=== PATIENT | male | born 1955 | race Caucasian/White ===

== ENCOUNTER → 2018-08-31 09:56 | Outpatient (CLI) | payer BC, SELFPAY ==
--- NOTE | 2018-08-31 10:01 | XR_ITS ---
EXAM: XR lumbar spine min 4V HISTORY: ITS.REASON: LUMBAGO WITH RT SCIATICA ORDERING PHYSICIAN: Jason Cornejo MD PATIENT AGE: 62 years COMPARISON: None FINDINGS: Mild lumbar scoliosis convex left. There is degenerative disc disease at L4-L5 and L5-S1 and to lesser. L3-L4. There are small anterior osteophytes. There is mild wedging of T 12 and L1 which appears chronic. No acute fracture or dislocation. Bilateral renal calculi suspected stones measuring up to 4 mm in the upper pole on the right and 2 mm in the upper pole of the left. IMPRESSION: 1. Mild scoliosis with degenerative disc disease. 2. Bilateral nephrolithiasis
== END ==
PROVIDERS: PCP Family Medicine; Visit Provider Family Medicine
DX: M54.41 Lumbago with sciatica, right side (principal)
CPT/HCPCS: 72110

== ENCOUNTER → 2019-02-26 07:46 | Outpatient (CLI) | payer BC, SELFPAY ==
--- NOTE | 2019-02-26 07:50 | NM_ITS ---
CARDIOLITE SPECT MYOCARDIAL PERFUSION LEXISCAN, REST AND STRESS: History: Hypertension, hyperlipidemia, shortness of breath, family history. Procedure: Patient exercised on Michael protocol 8 minutes, resting heart rate was 71 bpm resting blood pressure 128/82, with exercise maximum heart rate achieved was 1 48 bpm which is greater than 85% of the maximum predicted heart rate and a blood pressure was 160/90 test was started shortness of breath and fatigue patient denied any complained of chest pain. Patient has good exercise capacity achieved 10.1mets of workload on treadmill, the blood pressure response to exercise was adequate. Electrocardiogram: Resting electrocardiogram showed sinus rhythm, report changes, with exercise occasional premature ventricular complex seen, 1.[address] segment depression noted from the baseline EKG. The EKG portion of the exercise Myoview is negative for ischemia. Cardiac stress and resting SPECT images: Cardiac stress and resting SPECT images were obtained using technetium 99 Myoview 32.2 mCi stress and 10.7 mCi at rest. Gated SPECT further analysis of segmental wall motion and calculation of the ejection fraction also done. Cardiac stress and the suspect show mild fixed defect inferolaterally with normal contractility gated SPECT is likely secondary to soft tissue attenuation, no reversible ischemia seen, computer derived ejection fraction 55% with no regional wall motion abnormality, right ventricle is normal size and contractility. Conclusion: 1. The EKG portion of the exercise Myoview is negative for ischemia, patient has good exercise capacity achieved 10.1mets of workload on treadmill, the blood pressure response to exercise was adequate, there was no exercise-induced chest discomfort. 2. Scintigraphic evidence of reversible ischemia seen at this level of exercise, computer derived ejection fraction is 55% with no regional wall motion abnormality, right ventricle is normal size and contractility. 3. Normal exercise Myoview study.
--- NOTE | 2019-02-26 08:01 | HMH.ITSHM ---
Current Home Medications as stated by this patient Alex Carver or accounts payable representative. []TRAZADONE TAMSULOSIN LISINOPRIL FINASTERIDE PRAVASTATIN MELOXICAM
== END ==
PROVIDERS: PCP Family Medicine; Visit Provider Family Medicine
DX: R06.09 Other forms of dyspnea (principal); I10 Essential (primary) hypertension; E78.5 Hyperlipidemia, unspecified; Z82.49 Family history of ischemic heart disease and other diseases of the circulatory system
CPT/HCPCS: 78452; 93017; A9502

== ENCOUNTER → 2019-09-24 15:57 | Outpatient (CLI) | payer BC, SELFPAY ==
--- NOTE | 2019-09-24 16:02 | XR_ITS ---
PROCEDURE: XR CERVICAL SPINE 5V CLINICAL INDICATION: DISORDER OF NECK,CERVICAL RADICULOPATHY Right-sided neck pain COMPARISON: No exams were available for comparison FINDINGS: Degenerative disc disease C5-C6 and C6-C7. There is some minimal foraminal narrowing on the right at C5-C6 and on the left at C4-C5 and C5-C6. No fracture or dislocation. No lytic or blastic change. Endplate osteophytes are present posteriorly at C5-C6. IMPRESSION: Degenerative changes as described above Dictated by: Dmitry Hannon MD 09/24/2019 16:26 Electronically signed by Dmitry Hannon MD in [place] 09/24/2019 16:26
== END ==
PROVIDERS: PCP Family Medicine; Visit Provider Family Medicine
DX: M53.82 Other specified dorsopathies, cervical region (principal); M54.12 Radiculopathy, cervical region
CPT/HCPCS: 72050

== ENCOUNTER → 2019-10-02 07:41 | Outpatient (CLI) | payer BC, SELFPAY ==
--- NOTE | 2019-10-02 07:44 | MR_ITS ---
PROCEDURE: MR CERVICAL SPINE WO CON CLINICAL INDICATION: DISORDER OF NECK, PAIN IN RIGHT ARM, CERVICAL RADICULOPATHY Right arm pain and numbness and tingling COMPARISON: XR CERVICAL SPINE 5V from 09/24/2019 TECHNIQUE: Standard multiplanar multiecho sequences are performed without contrast. 3-D MIP and myelographic images are also rendered and reviewed FINDINGS: There is normal alignment. Cranial cervical junction has an unremarkable appearance. C2-C3: Unremarkable. C3-C4: Mild degenerative disc disease with mild left-sided uncovertebral hypertrophy and mild foraminal narrowing. C4-C5: Minimal bulging disc. C5-C6: Degenerate disc disease with minimal retrolisthesis of C5 of 2 mm with bulging disc slightly eccentric toward the right with uncovertebral hypertrophy with bilateral foraminal narrowing. There narrowing of the cord at this level at 10 mm. There is mild impingement upon the anterior aspect of the cord with contour deformity. C6-C7: Degenerate disc disease with mild bulging disc with uncovertebral hypertrophy bilaterally slightly greater on the left and bilateral lateral recess and foraminal narrowing slightly greater on the left. C7-T1: Degenerative disc disease. T1-T2: Degenerative disc disease. IMPRESSION: 1. Multilevel cervical spondylosis. Please see above for detailed description at each level. 2. C5-C6: Degenerate disc disease with minimal retrolisthesis of C5 of 2 mm with bulging disc slightly eccentric toward the right with uncovertebral hypertrophy with bilateral foraminal narrowing. There is narrowing of the cord at this level at 10 mm. There is mild impingement upon the anterior aspect of the cord with contour deformity. 3. C6-C7: Degenerate disc disease with mild bulging disc with uncovertebral hypertrophy bilaterally slightly greater on the left and bilateral lateral recess and foraminal narrowing slightly greater on the left. 4. No extruded herniated disc evident Dictated by: Dmitry Hannon MD 10/03/2019 17:42 Electronically signed by Dmitry Hannon MD in [place] 10/03/2019 17:42
== END ==
PROVIDERS: PCP Family Medicine; Visit Provider Family Medicine
DX: M53.82 Other specified dorsopathies, cervical region (principal); M79.601 Pain in right arm; M54.12 Radiculopathy, cervical region
CPT/HCPCS: 72141; 76376

== ENCOUNTER 2019-11-14 08:00 | Outpatient (RCR) | payer BC, SELFPAY | END 2019-11-14 08:05 | disposition home or self-care (01) | LOC: PT 08:00 | PROVIDERS: PCP Family Medicine; Visit Provider Neurological Surgery | DX: M54.2 Cervicalgia (principal) | CPT/HCPCS: 20560; 97010; 97012; 97014; 97035; 97110; 97163; 97535; G0283 ==

== ENCOUNTER → 2021-03-29 15:09 | Outpatient (CLI) | payer BC, SELFPAY ==
[2021-03-29 15:15] VITALS: PULSE 73; PULSE 76
== END ==
PROVIDERS: PCP Family Medicine; Visit Provider Family Medicine
DX: R06.02 Shortness of breath (principal)
CPT/HCPCS: 94060; 94640

== ENCOUNTER → 2021-07-21 12:29 | Outpatient (CLI) | payer BC, SELFPAY | PROVIDERS: PCP Family Medicine; Visit Provider Family Medicine | DX: G47.33 Obstructive sleep apnea (adult) (pediatric) (principal); R06.81 Apnea, not elsewhere classified; R06.83 Snoring | CPT/HCPCS: G0399 ==

== ENCOUNTER 2022-08-18 10:31 | Emergency (ER) | payer BC, SELFPAY ==
[2022-08-18 11:40] VITALS: BP 131/87; PULSE 84; RESP 18; TEMP 36.7; O2SAT 98; BMI 26.2
[2022-08-18 11:57] LABS: UTC Influenza A Antigen Negative (Negative); UTC Strep Screen (Rapid) Negative (Negative)
[2022-08-18 11:58] LABS: UTC Influenza B Antigen Negative (Negative)
--- NOTE | 2022-08-18 12:10 | EXP.UTC ---
Discharge Plan Disposition Patient Disposition: Home, Self-Care Condition: Good Prescriptions Prescriptions: No Action finasteride 5 mg tablet 5 mg PO .Q DAY tamsulosin 0.4 mg capsule,extended release 24hr 0.4 mg PO Q24H pravastatin 40 mg tablet 40 mg PO QHS trazodone 100 mg tablet 100 mg PO QHS lisinopril-hydrochlorothiazide 20-12.5 mg tablet See Rx Instructions PO DAILY Rx Instructions: half tab PO daily; celecoxib 200 mg capsule 200 mg PO DAILY omeprazole 20 mg capsule,delayed release(DR/EC) 20 mg PO DAILY Spiriva with HandiHaler 18 mcg capsule, w/inhalation device 1 cap INHALATION DAILY Referrals Follow up/Referrals: Jason Corenjo MD [Primary Care Provider] - See instructions Activity Restrictions/Add. Instructions Additional Instructions/Restrictions: *Monitor Temp, Over the counter Motrin or Tylenol as directed/as needed Tylenol every 4 hours and Motrin every 6 hours (as long as your family doctor has told you that you can take it) for fever or pain. and straight to ER if unable to lower temp less than 101.0 after medication given *Warm salt water gargles may help to soothe the throat *Throat Lozenges? *Warm fluids like tea with honey may help to soothe the throat? *Sleep elevated *Humidifier/Vaporizer Your throat swab was sent for culture. Those results are typically sent to your primary care. Be sure to follow up in 2-3 days with your family doctor/primary care physician if no improvement so they can review those result and treat if necessary. If you don?t have a primary care doctor, I recommend you get one but in the mean time, you will have to return to a walk in clinic Follow up IMMEDIATELY for new or worsening symptoms or no Noticeable improvement over the next 48-72 hours. 911 for difficulty breathing or swallowing You can check your COVID results on the [facility] My Health Portal later today for results Clinical Impressions Clinical Impression: Viral upper respiratory infection Instructions Patient Instructions: Sore Throat, DI for Nasal Congestion Discharge ED Provider: More Slaughter [facility] HPI General Stated complaint: Scratchy throat, strep/flu test Mode of Arrival: Ambulatory Source of Information: Patient Limitations: No Limitations Time Seen by Provider: 08/18/22 12:10 Description of Symptoms (Recalled from Triage Doc. by RN): PATIENT C/O SCRATCHY THROAT AND HEADACHE SINCE YESTERDAY. HE REPORTS HE IS SUPPOSED TO HAVE OPEN HEART SURGERY TOMORROW AND NEEDS CHECKED FOR STREP AND FLU HEENT Symptoms (Recalled from RN notes): Yes Resp Symptoms (Recalled from RN notes): No Skin Symptoms (Recalled from RN notes): No MS Symptoms (Recalled from RN notes): No Functional Status (Recalled from RN notes): WNL History of Present Illness Provider Complaint: Patient states that he is suppose to have Open Heart Surgery Tomorrow and started having sinus congestion and sore scratchy throat and headache States that they wanted him to get checked for flu and strep throat Denies known fever Related Data Home Medications Medication Instructions Recorded Confirmed finasteride 5 mg tablet 5 mg PO .Q DAY 09/21/17 08/18/21 pravastatin 40 mg tablet 40 mg PO QHS 09/21/17 08/18/21 tamsulosin 0.4 mg capsule 0.4 mg PO Q24H 09/21/17 08/18/21 celecoxib 200 mg capsule 200 mg PO DAILY 08/18/21 08/18/21 lisinopril 20 See Rx Instructions PO DAILY 08/18/21 08/18/21 mg-hydrochlorothiazide 12.5 mg tablet omeprazole 20 mg capsule,delayed 20 mg PO DAILY 08/18/21 08/18/21 release tiotropium bromide 18 mcg capsule 1 cap inhalation DAILY 08/18/21 08/18/21 with inhalation device (Spiriva with HandiHaler) trazodone 100 mg tablet 100 mg PO QHS 08/18/21 08/18/21 Allergies Allergy/AdvReac Type Severity Reaction Status Date / Time No Known Allergies Allergy Verified 08/18/21 08:32 Worker's Comp Is this a Worker's Comp case?: No
[2022-08-18 12:19] VITALS: BP 131/87; PULSE 84; RESP 18; TEMP 36.7; O2SAT 98
[2022-08-18 12:41] LABS: Coronavirus 19, PCR Not Detected (NotDetected); Influenza B, PCR Not Detected (NotDetected)
[2022-08-18 13:03] LABS: Influenza A, PCR Detected (NotDetected)
== END 2022-08-18 12:21 | disposition home or self-care (01) ==
PROVIDERS: Emergency Provider Nurse Practitioner; PCP Family Medicine
DX: J10.1 Influenza due to other identified influenza virus with other respiratory manifestations (principal)
CPT/HCPCS: 87804; 87880; 99212; C9803; G0463; U0003; U0005

== ENCOUNTER 2022-11-03 09:56 | Outpatient (RCR) | payer MEDICARE, BC, SELFPAY | END 2022-12-30 14:01 | disposition home or self-care (01) | LOC: PT 09:56 | DX: I25.10 Atherosclerotic heart disease of native coronary artery without angina pectoris (principal); Z95.1 Presence of aortocoronary bypass graft | CPT/HCPCS: 93798 ==

== ENCOUNTER 2023-11-30 11:06 | Outpatient (CLI) | payer MEDICARE, BC, SELFPAY ==
--- NOTE | 2023-11-30 11:11 | XR_ITS ---
FINAL REPORT CLINICAL HISTORY: LT KNEE PAIN; UNSPECIFIED CHRONICITY FINDINGS: Left knee Three views were obtained. There is no acute fracture or dislocation. Minimal degenerative changes are present. There is postoperative change in the medial lower leg. IMPRESSION: Degenerative and postoperative changes as above. Reviewed, Interpreted and Dictated by Erick Werner III, MD Transcribed by Elizabeth Manuel Authenticated and [facility]
== END 2023-11-30 23:59 ==
LOC: RAD 11:07
PROVIDERS: PCP Family Medicine; Visit Provider Family Medicine
DX: M25.562 Pain in left knee (principal)
CPT/HCPCS: 73562

== ENCOUNTER 2024-09-20 09:00 | Outpatient (RCR) | payer MEDICARE, BC, SELFPAY ==
--- NOTE | 2024-08-28 10:18 | HMH.PTOPEV ---
PT Outpatient Evaluation Rehab PT Outpatient Evaluation Start: 08/28/24 08:56 Freq: Status: Active Protocol: Document 08/28/24 08:56 LAURIE (Rec: 08/28/24 10:18 LAURIE [id number]) E-signed By Christiane Harding, PT Outpatient Therapy Subjective History Subjective History Pt is a 68 y/o male who reports chronic L knee pain that has gradually worsened over the past 4-5 months. Pt reports pain is located over the medial aspect of the knee. Pt reports pain is aggravated by prolonged standing/walking and twisting. 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 Pt had a L knee radiograph on 11/30/23 with impression of Degenerative and postoperative changes as above. Pt denies instability, clicking, catching, locking or popping of the knee. Pt reports his main concern is difficulty straightening his L knee. Pt states he has been taking prescribed Meloxicam for awhile which he states assists with pain. Pt reports the L leg has been chronically swollen and numb since having bypass surgery in 2021. Pt reports continued high blood pressure and states he has an appointment with his clinical systems educator today to discuss this. Medical History: Hypertension Observation: slight varus deformity noted New diagnosis of cancer in past 12 No months? Chief Complaint Pain,Swelling Symptom Type Ache,Stabbing Symptoms Relieved By Rest/Positioning,Prescription Meds Symptoms Aggravated By Standing,Physical Activity, Twisting,Walking Current Functional Limitations Lifting,Squatting,Recreation Activity,Walking Symptom Description Constant but Variable Level of pain today (0-10) 2 Pain scale - at its best (0-10) 1 Pain scale - at its worst (0-10) 8 Hip/Knee Eval Gait Observation General Gait Pattern Observation Antalgic Gait Assistive Device Assistive Devices None / NA Palpation Tenderness left Knee Palpation Finding Tenderness Knee Palpation Overall Comment medial joint line, medial femoral condyle 2/4 TTP MMT Hip Flexion Strength Grade 4 Good Hip Abduction Strength Grade 4 Good Hip Adduction Strength Grade 4 Good Hip Extension Strength Grade 4 Good Knee Extension Strength Grade 4 Good Knee Flexion Strength Grade 5 Normal ROM Knee Extension Active Range of Motion ( 5 degrees) Knee Extension Passive Range of Motion ( 2 degrees) Knee Flexion Active Range of Motion ( 130 degrees) Effusion joint effusion knee exam standard left Mid - Patellar Circumerential Measure ( 39 cm) Special Tests Knee Anterior Venkata Test Negative Left Knee Valgus Stress Test Negative Left Knee Varus Stress Test Negative Left Knee Peggy Test Negative Left Lower Extremity Functional Index Activities Today, do you or would you have any difficulty at all with: a.Any of your usual work, housework or A little bit of difficulty school activities b. Your usual hobbies, recreational or A little bit of difficulty sporting activities c. Getting into or out of the bath No difficulty d. Walking between rooms No difficulty e. Putting on your shoes or socks No difficulty f. Squatting A little bit of difficulty g. Lifting an object, like a bag of No difficulty groceries from the floor h. Performing light activities around No difficulty your home i. Performing heavy activities around A little bit of difficulty your home j. Getting into or out of a car No difficulty k. Walking 2 blocks No difficulty l. Walking a mile A little bit of difficulty m. Going up or down 10 stairs (about 1 No difficulty flight of stairs) n. Standing for 1 hour A little bit of difficulty o. Sitting for 1 hour No difficulty p. Running on even ground Moderate difficulty q. Running on uneven ground Moderate difficulty r. Making sharp turns while running fast Moderate difficulty s. Hopping Moderate difficulty t. Rolling over in bed No difficulty LEFI Score Lower Extremity Functional Index Score 66 Outpatient Therapy Assessment Impairments Problems/Impairmments Palpation Tenderness,Impaired Range of Motion,Impaired Strength,Impaired Walking, Impaired Standing,Impaired Lifting,Impaired Stair Climbing,Impaired Incline Stepping,Impaired Stepping on Uneven Surface,Impaired Squatting,Impaired Recreational Activities, Impaired Work Activities, Increased Edema,Lymphedema Present,Subjective C/O Pain, Impaired Self Care/Self Management Prognosis Rehab Potential Good Clinical Impression Consistent with Diagnosis Yes Short Term Goals Number of Weeks 3 Decrease Subjective C/O Pain Yes: Improve pain at worst to 6/10 to improve overall QOL Improve Self Care/Self Management Yes Patient to be Ind w/ HEP Yes Retirement Goals Number of Weeks 6 Increase Range of Motion Yes: Improve L knee extension AROM to 0 Increase Strength Yes: Improve LLE MMT to 4+-5/5 grossly to assist with function Improve Tolerance to Work Activities Yes: report ability to perform work duties at car shop with pain 4/10 or less Improve LEFI Score Yes: Improve score to 71/80 to improve overall QOL Decrease Subjective C/O Pain Yes: Improve pain at worst to 4/10 to improve overall QOL Outpatient Therapy Plan of Care Treatment Plan May Include Therapeutic Exercise Including Home Yes Exercise Program Manual Therapy Techniques Yes Neuromuscular Re-education Yes Therapeutic Activities to Return to Yes Previous Functional/Work Level Gait Training Yes ADL/Self Care Education Yes Dry Needling Yes Thermal Modalities Yes Electrical Stimulation Yes Ultrasound/Phonophoresis Yes Iontophoresis Yes Orthotics/Bracing/Splinting Yes Vasopneumatic Compression Pump Yes Massage Yes Manual Lymphatic Drainage Yes Eval/Re-Eval Yes Frequency Times per week 2 Duration Number of Weeks 4-6 Addendums This patient is a candidate for social No or vocational rehab? Patient/Guardian verbally acknowledges Yes understanding of treatment program and consents to further treatment? Patient/Guardian verbally acknowledges Yes understanding of diagnosis, prognosis and goals for treatment? Eval Complexity PT Charges 23695 - Low Complexity Shoulder/Elbow Eval Shoulder Objective Measurements Elbow Objective Measurements PHYSICIAN CERTIFICATION: I certify the specified therapy services for Alexbeto Carver are required, authorized, and reviewed every 30 days.
== END 2024-09-20 23:59 | disposition home or self-care (01) ==
LOC: PT 09:00
PROVIDERS: Visit Provider Physician Assistant Surgical
DX: M25.562 Pain in left knee (principal)
CPT/HCPCS: 97110; 97163; 97530

== ENCOUNTER 2024-09-25 08:54 | Outpatient (RCR) | payer MEDICARE, BC, SELFPAY ==
--- NOTE | 2024-09-25 09:42 | HMH.RHREAS ---
Rehab Reassessment Rehab OP Re-assessment Start: 09/25/24 08:58 Freq: Status: Active Protocol: Document 09/25/24 09:11 JAISONMARGARET (Rec: 09/25/24 09:42 LAURIE [id number]) E-signed By Christiane Harding PT Lower Extremity Functional Index Activities Today, do you or would you have any difficulty at all with: a.Any of your usual work, housework or No difficulty school activities b. Your usual hobbies, recreational or No difficulty sporting activities c. Getting into or out of the bath No difficulty d. Walking between rooms No difficulty e. Putting on your shoes or socks A little bit of difficulty f. Squatting A little bit of difficulty g. Lifting an object, like a bag of No difficulty groceries from the floor h. Performing light activities around No difficulty your home i. Performing heavy activities around A little bit of difficulty your home j. Getting into or out of a car No difficulty k. Walking 2 blocks No difficulty l. Walking a mile A little bit of difficulty m. Going up or down 10 stairs (about 1 No difficulty flight of stairs) n. Standing for 1 hour A little bit of difficulty o. Sitting for 1 hour No difficulty p. Running on even ground A little bit of difficulty q. Running on uneven ground A little bit of difficulty r. Making sharp turns while running fast A little bit of difficulty s. Hopping A little bit of difficulty t. Rolling over in bed No difficulty LEFI Score Lower Extremity Functional Index Score 71 Rehab Re-assessment Subjective Subjective Pt reports he has not experienced L knee pain recently but he continues to experience L knee tightness and difficulty straightening the L knee. Pt reports compliance with HEP and states he does feel that his knee has gotten a little looser overall. Objective Objective Notes L knee AROM: 0-3-130 LLE MMT: 4+/5 grossly LLE edema: 38.5 cm at tibiofemoral joint Assessment Progress Assessment Progressing as Expected Assessment Notes Pt has attended 6 PT treatment sessions consisting of aerobic exercise, L knee mobility with emphasis on extension, LE strengthening/ stretching, and HEP with good tolerance. Pt demonstrated improved LEFS score, LE MMT, and slight improvement in knee extension AROM. Overall, the pt met most PT goals and is appropriate to discharge to independent HEP. Pt encouraged to continue stretching and knee extension mobility exercises upon discharge. Patient goals met ST/ LT/5 Goals Not Met knee extension AROM Revised Goals n/a Plan Plan Discharge to [facility] Time and Billing Re-Eval Time 10 Re-Eval Billing Units 0 Charge for PT reassessment? No Charge for OT reassessment? No PHYSICIAN CERTIFICATION: I certify the specified therapy services for Alex Carver are required, authorized, and reviewed every 30 days.
== END 2024-09-25 23:59 | disposition home or self-care (01) ==
LOC: PT 08:54
PROVIDERS: Visit Provider Physician Assistant Surgical
DX: M25.562 Pain in left knee (principal)
CPT/HCPCS: 97110; 97530

== ENCOUNTER 2025-06-19 10:33 | Day surgery (SDC) | payer MEDICARE, BC, SELFPAY ==
[2025-06-13 15:34] VITALS: BMI 27.9
--- NOTE | 2025-06-18 07:20 | EXP.HP ---
History of Present Illness *Admission Date: 06/19/25 *History of present illness: Mr. Carver is a 69-year-old gentleman who is here for screening/surveillance colonoscopy. The patient does have a personal history of colon polyps and last colonoscopy was September 2013 (Jeremiah Bryson M.D.). The examination is deemed medically necessary for screening/surveillance colonoscopy. The patient has been seen, interviewed and examined prior to the procedure by both myself and the anesthesia provider. [facility] Disclaimer: The information contained in this section may have been updated after the patient was seen, as this information can be updated by other users. Medical History Left knee pain Overweight Prostate disorder Hyperlipidemia Hypertension Surgical History (Reviewed 06/19/25 @ 11: by Albania Lubin CRNA) History of cataract surgery History of heart bypass surgery H/O vasectomy Hx of cardiac cath Family History Mother Arthritis Other Coronary artery disease Heart attack Hypertension Social History Smoking Status: Never smoker alcohol intake: never substance use type: denies use current occupational status: retired Travel in the last 8 weeks?: Inside the [place] household members: spouse and children housing: house caffeine: Yes Have you lived/traveled outside US in past 30 days?: No Contact w/someone who lives/traveled outside US past 30 days?: No Exposure to someone with infectious disease in past 14 days?: No Do you have a fever (greater than 100.4 F or 38 C)?: No Have you tested positive for COVID-19?: No Exposed to someone with COVID-19 in past 14 days?: No Do you have a sore throat?: No Do you have a cough?: No Do you have any weakness?: No Are you experiencing any nausea/vomitting?: No Do you have any diarrhea?: No Are you experiencing any unusual bleeding?: No Do you have any muscle aches/pain?: No Do you have any abdominal pain?: No Are you experiencing loss of taste or smell?: No Other Medical History Have you received the Flu Vaccine for this season: No Have you received the Pneumonia Vaccine: No Review of Systems Review of Systems Review of systems (narrative): Negative *Cardiovascular Comments: Negative *Gastrointestinal Comments: Negative *Genitourinary Comments: Negative *Musculoskeletal Comments: Negative *Neurologic Comments: Negative Meds Home Medications and Allergies Home Medications ?Medication ?Instructions ?Recorded ?Confirmed ?Type finasteride 5 mg tablet 5 mg PO .Q DAY 09/21/17 06/19/25 History tamsulosin 0.4 mg capsule 0.4 mg PO Q24H 09/21/17 06/19/25 History omeprazole 20 mg capsule,delayed 20 mg PO DAILY 08/18/21 06/19/25 History release aspirin 81 mg chewable tablet 1 tab PO DAILY 12/08/22 06/19/25 History atorvastatin 40 mg tablet 40 mg PO DAILY 12/08/22 06/19/25 History furosemide 20 mg tablet 20 mg PO DAILY PRN . 02/01/23 06/19/25 History melatonin 10 mg chewable tablet 10 mg PO HS 07/27/23 06/19/25 History trazodone 50 mg tablet 100 mg PO HS 07/27/23 06/19/25 History metoprolol tartrate 37.5 mg tablet 37.5 mg PO BID 07/25/24 06/19/25 History amlodipine 5 mg tablet 5 mg PO DAILY 10/10/24 06/19/25 History irbesartan 150 1 tab PO HS 10/10/24 06/19/25 History mg-hydrochlorothiazide 12.5 mg tablet meloxicam 7.5 mg tablet 7.5 mg PO DAILY 10/10/24 06/19/25 History sodium,potassium,mag sulfates 17.5 See Rx Instructions PO .COMPLEX 06/05/25 06/19/25 Rx gram-3.13 gram-1.6 gram oral soln #354 mL (Suprep Bowel Prep Kit) New Prescriptions to Start Prescriptions: Allergies Allergy/AdvReac Type Severity Reaction Status Date / Time No Known Allergies Allergy Verified 06/19/25 10:49 Exam *Routine HEENT Exam Head: Present normocephalic Eye: Present EOMI and PERRL ENT: Present mucous membranes moist *Routine Neck Exam Neck: Present supple *Routine Respiratory Exam Respiratory: Present CTA bilaterally *Routine Cardiovascular Exam Cardiovascular: Present RRR *Routine Abdominal Exam Abdominal: Present soft and normoactive bowel sounds; Absent tenderness *Routine Rectal Exam Rectal:: deferred *Routine Genitalia Exam Genitalia:: deferred *Routine Extremities Exam Extremities: Absent cyanosis, clubbing or edema *Routine Skin Exam Skin: Present warm; Absent rash *Routine Neurological Exam Neurological: Present alert and oriented X3 Assessment and Plan *Assessment and plan (1) Personal history of colon polyps, unspecified: Status: Acute Category: Medical Code(s): Z86.0100 - Personal history of colon polyps, unspecified (2) Screening for colon cancer: Status: Acute Category: Medical Code(s): Z12.11 - Encounter for screening for malignant neoplasm of colon Plan A/P: 1. Personal history of colon polyps (unspecified) is the preprocedural diagnosis. Last colonoscopy was September 2013 (almost 12 years ago). The patient will be anesthetized/sedated using MAC sedation. The patient has been seen and examined. Cardiac and lung assessment prior to the examination is stable. Proceed with planned screening/surveillance colonoscopy.
--- NOTE | 2025-06-19 07:00 | HMH.PROCNOTE ---
[facility] Procedure Note Date: 06/19/25 Time: 12:20 Procedure Note:: Colonoscopy Procedure Report: Colonoscopy Endoscopist: Shashi Rodriguez II, MD Referring physician: Jason Cornejo MD Date of Procedure: June 19, 2025 Equipment: Olympus [id number] adult colonoscope Sedation: MAC sedation Indication: Mr. Carver is a 69-year-old gentleman who is here for screening/surveillance colonoscopy. The patient reports no abdominal pain, weight loss, change in his bowel habits or rectal bleeding. He does state that his maternal grandmother had colon cancer in her 90s. The patient does have a personal history of colon polyps and last colonoscopy was September 2013 (Jeremiah Bryson M.D.). The examination is deemed medically necessary for screening/surveillance colonoscopy. Procedure: Prior to the procedure, a history and physical exam was performed, and patient's medications and allergies were reviewed. The risks, benefits and alternatives of the sedation and procedure were discussed with the patient. All questions were answered and informed consent was obtained. The patient was brought to the procedure room. Patient identification and proposed procedure were verified by the physician and the nurse. The patient was placed in a left lateral decubitus position and the scope was passed under direct vision. Throughout the procedure, the patient's blood pressure, pulse, and oxygen saturations were monitored continuously. The colonoscopy was accomplished without difficulty. The patient tolerated the procedure well. Findings: On digital rectal examination there was normal rectal tone. There were no external hemorrhoids. The prostate was 2+, smooth, soft, symmetric without nodules. The colonoscope was introduced through the anal canal to the rectum and advanced to the cecum. The ileocecal valve and appendiceal orifice were identified. The scope was advanced a short distance into the ileum which appeared grossly normal. The scope was then withdrawn into the colon. The cecum, ascending and transverse colon and mucosa were grossly normal. There were scattered diverticuli throughout the descending and sigmoid colon (LEFT colon). The rectum itself was normal. Upon retroflexion within the rectum there were grade 1-2 internal hemorrhoids. The preparation was excellent throughout with [place] Preparation Score of 9. The cecal time was 11 minutes. Impression: 1. Left-sided diverticulosis 2. Grade 1-2 internal hemorrhoids Plan: The patient will not require screening/surveillance colonoscopy again for 10 years. I would encourage psyllium bulking fiber supplementation on a maintenance basis.
[2025-06-19 10:55] VITALS: BP 115/68; PULSE 70; RESP 16; TEMP 36.4; O2SAT 96
[2025-06-19] MEDS: LACTATED RINGERS 1000ML 1,000 ML 50 ML IV (11:05)
--- NOTE | 2025-06-19 11:31 | P.PNANES_ITS ---
[facility] Disclaimer: The information contained in this section may have been updated after the patient was seen, as this information can be updated by other users. Medical History Left knee pain Overweight Prostate disorder Hyperlipidemia Hypertension Surgical History History of cataract surgery History of heart bypass surgery H/O vasectomy Hx of cardiac cath Family History Mother Arthritis Other Coronary artery disease Heart attack Hypertension Social History Smoking Status: Never smoker alcohol intake: never substance use type: denies use current occupational status: retired Travel in the last 8 weeks?: Inside the [place] household members: spouse and children housing: house caffeine: Yes Have you lived/traveled outside US in past 30 days?: No Contact w/someone who lives/traveled outside US past 30 days?: No Exposure to someone with infectious disease in past 14 days?: No Do you have a fever (greater than 100.4 F or 38 C)?: No Have you tested positive for COVID-19?: No Exposed to someone with COVID-19 in past 14 days?: No Do you have a sore throat?: No Do you have a cough?: No Do you have any weakness?: No Are you experiencing any nausea/vomitting?: No Do you have any diarrhea?: No Are you experiencing any unusual bleeding?: No Do you have any muscle aches/pain?: No Do you have any abdominal pain?: No Are you experiencing loss of taste or smell?: No [facility] Anesthesia Checklist Patient Identification Patient Identification: Arm Band and Verbal (Name & ) Structural Data Admitted From: Home Planned Operative Procedure/s: COLONSCOPY Consent for Planned Operative Procedure(s) Verified: Yes Verified Documents: Surgical Consent and History and Physical NPO Status Verified Time NPO: 00:00 Additional verifications Anesthesia Reactions: No Previous Colonoscopy: Yes Airway Assessment Mallampati Score:: Class II C-Spine Mobility Assessed: No TMJ Mobility Assessed: No Dentition: Good Dentition Neurological Assessment Level of Consciousness: Awake, Alert and Appropriate Hx Seizures: No Numbness or tingling in extremities: No Anesthesia Plan Anesthesia Risk discussed: Yes Anesthesia Plan: Verified ASA Class: III Anesthesia Type: MAC
[2025-06-19 12:23] VITALS: BP 84/49; PULSE 63; RESP 14; TEMP 36.2; O2SAT 94
[2025-06-19 12:33] VITALS: BP 87/58; PULSE 66; RESP 16; O2SAT 95
[2025-06-19 12:43] VITALS: BP 103/64; PULSE 60; RESP 16; O2SAT 96
[2025-06-19 12:53] VITALS: BP 109/69; PULSE 61; RESP 16; O2SAT 96
== END 2025-06-19 13:02 | disposition home or self-care (01) ==
PROVIDERS: PCP Family Medicine; Visit Provider Internal Medicine Gastroenterology
PROC: 0DJD8ZZ Inspection of Lower Intestinal Tract, Via Natural or Artificial Opening Endoscopic (ICD-10-PCS; CPT 45378; principal; 2025-06-19 12:00)
DX: Z12.11 Encounter for screening for malignant neoplasm of colon (principal); K57.30 Diverticulosis of large intestine without perforation or abscess without bleeding; K64.0 First degree hemorrhoids; K64.1 Second degree hemorrhoids; I10 Essential (primary) hypertension; E78.5 Hyperlipidemia, unspecified; Z79.82 Long term (current) use of aspirin; Z86.0100 Personal history of colon polyps, unspecified
CPT/HCPCS: 45378; J2003; J2704; J7120

== ENCOUNTER 2025-08-08 08:38 | Outpatient (CLI) | payer MEDICARE, BC, SELFPAY ==
--- OUTSIDE RECORDS SUMMARY | 2024-04-12 04:15 | XMS_ITS ---
Author Organization [facility] Address [address] [facility] [address] [place], [place] [id number] Care Team Providers Care Chicken Stuffer Name Role Phone Jason Cornejo Primary Care Provider Allergies No Known Allergies Results Component Value Reference Range Notes P-Comprehensive Metabolic Pa cecille (CMP) Reviewed date:04/15/2024 12:03:14 PM Interpretation:satisfactory Performing Lab: Notes/Report: Test performed by [facility] , [address], [place] [address] Venkat Jose MD, Chinchilla Farmer CLIA: [id number] Sodium 138 135-145 mmol/L Potassium 4.9 3.5-5.3 mmol/L Chloride 101 97-108 mmol/L CO2 27 22-32 mmol/L Glucose 102 65-99 mg/dL BUN 22 8-23 mg/dL Creatinine 1.08 0.70-1.30 mg/dL Calcium 9.1 8.6-10.4 mg/dL eGFR by Creatinine 75 >59 mL/min/1.73m2 Protein 6.3 6.0-8.3 g/dL Albumin 4.3 3.5-5.3 g/dL Alkaline Phosphatase 65 40-129 IU/L ALT (SGPT) 24 <5-55 IU/L AST (SGOT) 26 <5-46 IU/L Bilirubin, Total 0.9 <0.2-1.2 mg/dL A/G Ratio 2.1 1.1-2.5 P-Lipid Panel Reviewed date:04/15/2024 12:03:14 PM Interpretation:Normal Performing Lab: Notes/Report: Test performed by [facility] [address] [place] [address] Venkat Jose MD, Chinchilla Farmer CLIA: [id number] Cholesterol 151 <200 mg/dL Triglycerides 52 <150 mg/dL HDL Cholesterol 75 >39 mg/dL Cholesterol / HDL Ratio 2.01 0.00-4.99 Ratio Non-HDL Cholesterol 76 <130 mg/dL LDL Cholesterol (Calculation) 66 <130 mg/dL LDL Cholesterol Levels* Less than 100 mg/dL Optimal 100 to 129 mg/dL Near Optimal/ Above Optimal 130 to 159 mg/dL Borderline High 160 to 189 mg/dL High 190 mg/dL and above Very High * Categories as recommended by the 2004 ATPIII guidelines LDL/HDL Ratio 0.9 <3.3 Ratio LDL Cholesterol Patient History Test Date: 04/12/2024 LDL Results: 66 Units: mg/dL % Change: - P-PSA Reviewed date:04/15/2024 12:03:14 PM Interpretation:Normal Performing Lab: Notes/Report: Test performed by [facility] [address] [place], [place] [address] Venkat Jose MD, Chinchilla Farmer CLIA: [id number] PSA 0.43 <4.00 ng/mL Please note this is an ultrasensitive PSA assay with a lower limit of detection of 0.014 ng/mL. This test is performed by the [employer] ECLIA methodology. Values obtained with different assay methods or kits cannot be directly compared. P-TSH reflex to FT4 Reviewed date:04/15/2024 12:03:14 PM Interpretation:Normal Performing Lab: Notes/Report: Test performed by [facility] [address] [place] [address] , [address], [place] [address] Venkat Jose MD, Chinchilla Farmer CLIA: [id number] TSH reflex to FT4 1.11 0.43-5.25 mU/L P-Microalbumin/Creatinine, R andom Urine Sample Reviewed date:04/15/2024 12:03:14 PM Interpretation:Normal Performing Lab: Notes/Report: Test performed by [facility] [address] [place] [address] , [address], [place] [address] Venkat Jose MD, Chinchilla Farmer CLIA: [id number] Albumin/Creatinine Ratio, Urine 3 0-30 ug/mg Microalbumin, Urine, Random 0.5 Creatinine, Urine 182.3 REASON FOR VISIT 6 Month Check Up Medications Medication SIG (Take, Route, Frequency, Duration) Notes Start Date End Date Status Atorvastatin Calcium 40 MG 1 tablet Oral ly Once a day; Duration: 90 days Active Omeprazole 20 MG 1 cap(s) orally once a day; Duration: 90 days Active Meloxicam 7.5 MG 1 tablet Orally Once a day; Duration: 90 days Active Tamsulosin HCl 0.4 MG 1 cap(s) orally on ce a day; Duration: 90 days Active Metoprolol Tartrate 37.5 MG 1 tab(s) ora lly 2 times a day Active Aspirin 81 MG 1 tab(s) orally once a day Active Finasteride 5 MG 1 tablet Orally once daily; Duration: 90 days Active traZODone HCl 50 MG 3 tablets Orally Onc e a day at bedtime; Duration: 30 days Active Vital Signs Weight 182 lbs 04/12/2024 Blood pressure systolic 126 mm Hg 04/12/20 24 Blood pressure diastolic 80 mm Hg 024 Heart Rate 68 /min 04/12/2024 Height 69.25 in 04/12/2024 BMI 26.68 kg/m2 04/12/2024 Encounters Encounter Location Date Provider Diagnosis [facility] [address] [place] [id number] 04/12/2024 Jason Cornejo Essential hypertensi on I10 ; Hyperlipidemia, unspecified hyperlipidemia type E78.5 ; Gastroesophageal reflux disease, esophagitis presence not specified K21.9 ; Benign prostatic hyperplasia, presence of lower urinary tract symptoms unspecified, unspecified morphology N40.0 ; Coronary artery disease involving klamath coronary artery of klamath heart without angina pectoris I25.10 and Prostate cancer screening Z12.5 Assessments Encounter Date Diagnosis (ICD Code) Assessment Notes Treatment Notes Treatment Clinical Notes Section Notes 04/12/2024 Essential hypertension (ICD-10 - I10) 04/12/2024 Hyperlipidemia, unspecified hyperlipidemia type (ICD-10 - E78.5) 04/12/2024 Gastroesophageal reflux disease, esophagitis presence not specified (ICD-10 - K21.9) 04/12/2024 Benign prostatic hyperplasia, presence of lower urinary tract symptoms unspecified, unspecified morphology (ICD-10 - N40.0) 04/12/2024 Coronary artery disease involving klamath coronary artery of klamath heart without angina pectoris (ICD-10 - I25.10) 04/12/2024 Prostate cancer screening (ICD-10 - Z12.5) Plan Of Treatment Medication Medication Name Sig Start Date Stop Date Notes Atorvastatin Calcium 40 MG 1 tablet Oral ly Once a day; Duration: 90 days Omeprazole 20 MG 1 cap(s) orally once a day; Duration: 90 days Finasteride 5 MG 1 tablet Orally once daily; Duration: 90 days Next Appt Details Follow Up: 6 Months, Reason: Provider Name:Jason Chiang ry, 10/17/2025 09:00:00 AM, [address], [address], [place], [id number], Progress Notes * Vesna CARVER:1955 (69 yo M)Acc No.[id number]:04/12/2024 Progress Notes Patient: Alex SIM Provider: Keila Cornejo M.D. :1955 A ge:68 Y S ex:Male Date:04/12/2024 Address:[address] [place] [address], [id number] Subjective: * Chief Complaints: * 1 . 6 Month Check Up. * HPI: C ardiology: 68 year old male presents with c/o Blood Pressure Elevated P t here for 6 mo f/u on hypertension, states he is doing well and does not have any concerns. c/o Hyperlipidemia P t is fasting today. * ROS: D ERMATOLOGY: no R bronwyn. n o H jason. G ASTROENTEROLOGY: no N ausea. n o V omiting. U ROLOGY: no D ifficulty urinating. n o B lood in urine. * Medical History: C oronary Artery Disease, Dx 2022, Hypertension, Hyperlipidemia, Dyspepsia, Colon Polyps, BPH, Degenerative Disc Disease, Kdney Stones, Retinal detachment, left eye, 2017, Cardiolyte stress test normal February 2019. * Surgical History: C olonoscopy (polyps) 08/2008, EGD (normal) 06/2009, Colonoscopy (polyps) 09/2013, LT Cataract Removal 04/2018, Retina and Coronia tear repairs (multiple times) 07/2018, LT Eye Scleral Buckle 10/18/2018, Coronary Artery Bypass Graft x 5 Vessels 08/2022. * Hospitalization/Major Diagno stic Procedure: D enies Past Hospitalization. * Family History: F ather: alive, hypertension, heart disease, Parkinsons. M other: alive. P aternal Grand Father: , heart disease. P aternal Grand Mother: , Parkinsons. M aternal Grand Father: , cancer, bladder. M aternal Grand Mother: . 1 son(s) , 1 daughter(s) - healthy. . * Social History: C URRENT TOBACCO USE S moking Status: Patient does NOT smoke. H ome smoke detector use: yes. Marital Status: . Past smoking status: no. * Medications: T aking Atorvastatin Calcium 40 MG Tablet 1 tablet Orally Once a day , Taking Aspirin 81 MG Tablet Delayed Release 1 tab(s) orally once a day , Taking Omeprazole 20 MG Capsule Delayed Release 1 cap(s) orally once a day , Taking Metoprolol Tartrate 37.5 MG Tablet 1 tab(s) orally 2 times a day , Taking Finasteride 5 MG Tablet TAKE 1 TABLET BY MOUTH ONCE DAILY FOR 90 DAYS. , Taking traZODone HCl 50 MG Tablet 3 tablets Orally Once a day at bedtime , Taking Tamsulosin HCl 0.4 MG Capsule 1 cap(s) orally once a day , Taking Meloxicam 7.5 MG Tablet 1 tablet Orally Once a day , Discontinued Terbinafine HCl 250 MG Tablet TAKE 1 TABLET BY MOUTH DAILY. , Medication List reviewed and reconciled with the patient * Allergies: N .K.D.A. Objective: * Vitals: W t:182, Temp:97.8, BP:126/80, HR:68, Nurse:antonia, Ht: 69.25, BMI:26.68. * Examination: C ardiology: General Appearance: p leasant, NAD. H EENT: u nremarkable. C arotid upstroke: n ormal, no bruits. H eart sounds: R RR, normal S1, S2.?Lungs: c lear, no rales or wheezes. E xtremities: n o leg edema. P eripheral pulses: 2 plus bilateral. Assessment: * Assessment: 1. E ssential hypertension - I10 (Primary) 2 . H yperlipidemia, unspecified hyperlipidemia type - E78.5 3 . G astroesophageal reflux disease, esophagitis presence not specified - K21.9 4 . B enign prostatic hyperplasia, presence of lower urinary tract symptoms unspecified, unspecified morphology - N40.0 5 . C oronary artery disease involving klamath coronary artery of klamath heart without angina pectoris - I25.10? 6. P rostate cancer screening - Z12.5 Plan: * Treatment: Value Reference Range A /G Ratio 2.1 1.1-2.5 - * A lbumin 4.3 3.5-5.3 - g/dL * A lkaline Phosphatase 65 40-129 - IU/L * A LT (SGPT) 24 <5-55 - IU/L * A ST (SGOT) 26 <5-46 - IU/L * B ilirubin, Total 0.9 <0.2-1.2 - mg/dL * B UN 22 8-23 - mg/dL * C alcium 9.1 8.6-10.4 - mg/dL * C hloride 101 97-108 - mmol/L * C O2 27 22-32 - mmol/L * C reatinine 1.08 0.70-1.30 - mg/dL * G lucose 102 H 65-99 - mg/dL * P otassium 4.9 3.5-5.3 - mmol/L * S odium 138 135-145 - mmol/L * P rotein 6.3 6.0-8.3 - g/dL * e GFR by Creatinine 75 >59 - mL/min/1.73m2 * Mimi Garcia 04/15/2024 11:47:4 8 AM > LM for return call Huma Wick 04/15/2024 12:03:04 PM >Patient informed of normal results. ?LAB: P-Microalbumin/Creatinine, Random Urine Sample (Collection Date & Time - 04/12/2024 08:58 AM)?Normal* Value Reference Range A lbumin/Creatinine Ratio, Urine 3 0-30 - ug /mg * C reatinine, Urine 182.3 - mg/dL * M icroalbumin, Urine, Random 0.5 - mg/dL * Mimi Garcia 04/15/2024 11:47:4 8 AM > LM for return call Huma Wick 04/15/2024 12:03:04 PM >Patient informed of normal results. 2.?Hyperlipidemia, unspecified hyperlipidemia type? Refill Atorvastatin Calcium Tablet, 40 MG, 1 tablet, Orally, Once a day, 90 days, 90, Refills 1. ?LAB: P-Comprehensive Metabolic Panel (CMP) (Collection Date & Time - 04/12/2024 08:58 AM)?satisfactory* Value Reference Range A /G Ratio 2.1 1.1-2.5 - * A lbumin 4.3 3.5-5.3 - g/dL * A lkaline Phosphatase 65 40-129 - IU/L * A LT (SGPT) 24 <5-55 - IU/L * A ST (SGOT) 26 <5-46 - IU/L * B ilirubin, Total 0.9 <0.2-1.2 - mg/dL * B UN 22 8-23 - mg/dL * C alcium 9.1 8.6-10.4 - mg/dL * C hloride 101 97-108 - mmol/L * C O2 27 22-32 - mmol/L * C reatinine 1.08 0.70-1.30 - mg/dL * G lucose 102 H 65-99 - mg/dL * P otassium 4.9 3.5-5.3 - mmol/L * S odium 138 135-145 - mmol/L * P rotein 6.3 6.0-8.3 - g/dL * e GFR by Creatinine 75 >59 - mL/min/1.73m2 * Mimi Garcia 04/15/2024 11:47:4 8 AM > LM for return call [facility] 04/15/2024 12:03:04 PM >Patient informed of normal results. ?LAB: P-Lipid Panel (Collection Date & Time - 04/12/2024 08:58 AM)?Normal* Value Reference Range C holesterol / HDL Ratio 2.01 0.00-4.99 - Ratio * C holesterol 151 <200 - mg/dL * H DL Cholesterol 75 >39 - mg/dL * L DL Cholesterol (Calculation) 66 <130 - mg/d L * L DL/HDL Ratio 0.9 <3.3 - Ratio * N on-HDL Cholesterol 76 <130 - mg/dL * T riglycerides 52 <150 - mg/dL * Yulissa Garciaira 04/15/2024 11:47:4 8 AM > LM for return call [facility] 04/15/2024 12:03:04 PM >Patient informed of normal results. ?LAB: P-TSH reflex to FT4 (Collection Date & Time - 04/12/2024 08:58 AM)? Normal* Value Reference Range T SH reflex to FT4 1.11 0.43-5.25 - mU/L * Yulissa Garciaira 04/15/2024 11:47:4 8 AM > LM for return call [facility] 04/15/2024 12:03:04 PM >Patient informed of normal results. 3.?Gastroesophageal reflux disease, esophagitis presence not specified? Refill Omeprazole Capsule Delayed Release, 20 MG, 1 cap(s), orally, once a day, 90 days, 90, Refills 1.??4.?Benign prostatic hyperplasia, presence of lower urinary tract symptoms unspecified, unspecified morphology? Refill Finasteride Tablet, 5 MG, 1 tablet, Orally, once daily, 90 days, 90, Refills 1.??5.?Prostate cancer screening?LAB: P-PSA (Collection Date & Time - 04/12/2024 08:58 AM)?Normal* Value Reference Range P SA 0.43 <4.00 - ng/mL * Mimi Garcia 04/15/2024 11:47:4 8 AM > LM for return call Huma Wick 04/15/2024 12:03:04 PM >Patient informed of normal results. * Follow Up: 6 Months * Images: Billing Information: * Visit Code: [id number] Office Visit, Est Pt., Level 4. * Procedure Codes: * Electronic signature of Tess Cornejo MD on 08/08/2025 at 08:45 AM EST Sign off status: Pending * Provider: Keila Cornejo M.D. Date: 0 04/12/2024 Generated for Saige salas/Broderick/Patricia on: 1 10/09/2024 08:45 AM EST History and Physical Notes * HPI (History of Present Illness) Category Sub-Category Detail Notes Category Not es Cardiology Blood Pressure Elevated Pt here for 6 mo f/u on hypertension, states he is doing well and does not have any concerns Hyperlipidemia Pt is fasting today Examination Category Sub-Category Detail Notes Category Not es Cardiology Lungs: clear, no rales or wheezes HEENT: unremarkable Heart sounds: RRR, normal S1, S2 Carotid upstroke: normal, no bruits Extremities: no leg edema Peripheral pulses: 2 plus bilateral General Appearance: pleasant, NAD
--- OUTSIDE RECORDS SUMMARY | 2024-07-26 06:45 | XMS_ITS ---
[facility] [address] [id number] Care Team Providers Care Web Graphic Designer Name Role Phone Jason Cornejo Primary Care Provider [phone] Allergies No Known Allergies Reason For Referral Diagnosis 1 Arthritis of left kn ee (M17.12) Diagnosis 2 Pain in left knee (M 25.562) Referral Organization [facility] Referring Provider First Name Jason Referring Provider Last Name Clemente Referring Provider Speciality Family [facility] ctice Referred Provider Fco Alvarez Referred Provider Specialty Orthopedic S [facility] General Notes Priscila Landaverde 07/26/20 24 12:01:19 PM > faxed to Dr. Alvarez's office Referral Priority Routine REASON FOR VISIT HIGH B/p Medications Medication SIG (Take, Route, Frequency, Duration) Notes Start Date End Date Status Aspirin 81 MG 1 tab(s) orally once a day Active Irbesartan 150 MG 1 tablet Orally Once a day; Duration: 90 days 07/26/2024 Active Meloxicam 7.5 MG 1 tablet Orally Once a day; Duration: 90 days Active Tamsulosin HCl 0.4 MG 1 cap(s) orally on ce a day; Duration: 90 days Active Metoprolol Tartrate 37.5 MG 1 tab(s) ora lly 2 times a day Active Finasteride 5 MG 1 tablet Orally once daily; Duration: 90 days Active traZODone HCl 50 MG 3 tablets Orally Onc e a day at bedtime; Duration: 30 days Active Atorvastatin Calcium 40 MG 1 tablet Oral ly Once a day; Duration: 90 days Active Omeprazole 20 MG 1 cap(s) orally once a day; Duration: 90 days Active Problems Problem Type SNOMED Code ICD Code Onset Dates Problem Status W/U Status Risk Notes Problem Chronic pain (31047637) Other chronic pain (G89.29) Active confirmed Problem Arthritis of left knee (1452749011981 104) Arthritis of left knee (M17.12) Active confirmed Vital Signs Weight 189 lbs 07/26/2024 Blood pressure systolic 150 mm Hg 07/26/20 24 Blood pressure diastolic 90 mm Hg 024 Heart Rate 78 /min 07/26/2024 Height 69.25 in 07/26/2024 BMI 27.71 kg/m2 07/26/2024 Encounters Encounter Location Date Provider Diagnosis [facility] [address] [place], [place] [id number] 07/26/2024 Jason Cornejo Essential hypertensi on I10 ; Pain in left knee M25.562 ; Other chronic pain G89.29 and Arthritis of left knee M17.12 Assessments Encounter Date Diagnosis (ICD Code) Assessment Notes Treatment Notes Treatment Clinical Notes Section Notes 07/26/2024 Essential hypertension (ICD-10 - I10) 07/26/2024 Pain in left knee (ICD-10 - M25.562) 07/26/2024 Other chronic pain (ICD-10 - G89.29) 07/26/2024 Arthritis of left knee (ICD-10 - M17.12) Plan Of Treatment Medication Medication Name Sig Start Date Stop Date Notes Irbesartan 150 MG 1 tablet Orally Once a day; Duration: 90 days 07/26/2024 Referrals Referral Date Details 07/26/2024 07/26/2024, [facility] [place] Next Appt Details Follow Up: 3 or 4 Weeks, Lisa son: Provider Name:Jason Chiang ry, 10/17/2025 09:00:00 AM, [address], [address], [place], [id number], Progress Notes * Dada CARVEROB:1955 (69 yo M)Acc No.[id number]:07/26/2024 Progress Notes Patient: Keila NAKITAAlex Provider: Keila Cornejo M.D. :1955 A ge:68 Y S ex:Male Date:07/26/2024 Address:[address] [place] [address] [address], [id number] Subjective: * Chief Complaints: * 1 . HIGH B/p. * HPI: C ardiology: 68 year old male presents with c/o Blood Pressure Elevated P t states that he saw Dr. Hobson yesterday and his bp was 150/90. Pt states the last few times he has checked bp it was around that as well. * ROS: D ERMATOLOGY: no R bronwyn. [...] smoking status: no. * Medications: T aking Aspirin 81 MG Tablet Delayed Release 1 tab(s) orally once a day , Taking Metoprolol Tartrate 37.5 MG Tablet 1 tab(s) orally 2 times a day , Taking Tamsulosin HCl 0.4 MG Capsule 1 cap(s) orally once a day , Taking Meloxicam 7.5 MG Tablet 1 tablet Orally Once a day , Taking Omeprazole 20 MG Capsule Delayed Release 1 cap(s) orally once a day , Taking Atorvastatin Calcium 40 MG Tablet 1 tablet Orally Once a day , Taking traZODone HCl 50 MG Tablet 3 tablets Orally Once a day at bedtime , Taking Finasteride 5 MG Tablet 1 tablet Orally once daily , Medication List reviewed and reconciled with the patient * Allergies: N .K.D.A. Objective: * Vitals: W t:189, Temp:98.0, BP:150/90, HR:78, Nurse:antonia, Ht: 69.25, BMI:27.71. * Examination: C ardiology: General Appearance: p leasant, NAD. H eart sounds: R RR, normal S1, S2. L ungs: c lear, no rales or wheezes. E xtremities: n o leg edema. Assessment: * Assessment: 1. E ssential hypertension - I10 (Primary) 2 . P ain in left knee - M25.562? 3. O ther chronic pain - G89.29 4 . A rthritis of left knee - M17.12 Plan: * Treatment: 2. P ain in left knee Referral To:[facility] Orthopedic Surgery Reason: 3. A rthritis of left knee Referral To:[facility] Orthopedic Surgery Reason: * Procedure Codes: G 2211 Complex e/m visit add on * Follow Up: 3 or 4 Weeks * Images: Billing Information: * Visit Code: 35680 Office Visit, Est Pt., Level 3. * Procedure Codes: G2211 Complex e/m visit add on. * Electronic signature of Tess Cornejo MD on 08/08/2025 at 08:44 AM EST Sign off status: Pending * Provider: Keila Cornejo M.D. Date: 09/26/2023 Generated for Saige salas/Broderick/Patricia on: 10/09/2024 08:44 AM EST History and Physical Notes * HPI (History of Present Illness) Category Sub-Category Detail Notes Category Not es Cardiology Blood Pressure Elevated Pt state s that he saw Dr. Hobson yesterday and his bp was 150/90. Pt states the last few times he has checked bp it was around that as well Examination Category Sub-Category Detail Notes Category Not es Cardiology Lungs: clear, no rales or wheezes Heart sounds: RRR, normal S1, S2 Extremities: no leg edema General Appearance: pleasant, NAD Consultation Request Notes Referral Date Referring Provider Referred Provider Not es 07/26/2024 Jason Cornejo, Gene
--- OUTSIDE RECORDS SUMMARY | 2024-08-28 06:00 | XMS_ITS ---
Author Organization [facility] Address [address] [facility] [address] [phone] Care Team Providers Care Test Analyst Name Role Phone Jason Cornejo Primary Care Provider Allergies No Known Allergies REASON FOR VISIT 4 week follow up Medications Medication SIG (Take, Route, Frequency, Duration) Notes Start Date End Date Status Irbesartan-hydroCHLOROthiaz gm 300-12.5 MG 1 tablet Orally Once a day; Duration: 30 day(s) 08/28/2024 Active Atorvastatin Calcium 40 MG 1 tablet Oral ly Once a day; Duration: 90 days Active Finasteride 5 MG 1 tablet Orally once daily; Duration: 90 days Active amLODIPine Besylate 5 MG 1 tablet Orally Once a day; Duration: 30 day(s) 08/28/2024 Active Meloxicam 7.5 MG 1 tablet Orally Once a day; Duration: 90 days Active Omeprazole 20 MG 1 cap(s) orally once a day; Duration: 90 days Active Metoprolol Tartrate 37.5 MG 1 tab(s) ora lly 2 times a day Active Tamsulosin HCl 0.4 MG 1 cap(s) orally on ce a day; Duration: 90 days Active Aspirin 81 MG 1 tab(s) orally once a day Active traZODone HCl 50 MG 3 tablets Orally Onc e a day at bedtime; Duration: 90 days Active Vital Signs Weight 193 lbs 08/28/2024 Blood pressure systolic 160 mm Hg 08/28/19 25 Blood pressure diastolic 100 mm Hg 01/08/2 025 Heart Rate 67 /min 08/28/2024 Height 69.25 in 08/28/2024 BMI 28.29 kg/m2 08/28/2024 Encounters Encounter Location Date Provider Diagnosis [facility] [address] [place] [address] [address] [facility] [address] [place] [id number] 08/28/2024 Jason Cornejo Essential hypertensi on I10 and Primary insomnia F51.01 Assessments Encounter Date Diagnosis (ICD Code) Assessment Notes Treatment Notes Treatment Clinical Notes Section Notes 08/28/2024 Essential hypertension (ICD-10 - I10) 08/28/2024 Primary insomnia (ICD-10 - F51.01) Plan Of Treatment Medication Medication Name Sig Start Date Stop Date Notes Irbesartan 150 MG 2 tablets Orally Once a day 07/26/2024 Irbesartan-hydroCHLOROthiazi de 300-12.5 MG 1 tablet Orally Once a day; Duration: 30 day(s) 08/28/2024 amLODIPine Besylate 5 MG 1 tablet Orally Once a day; Duration: 30 day(s) 08/28/2024 traZODone HCl 50 MG 3 tablets Orally Onc e a day at bedtime; Duration: 90 days Next Appt Details Follow Up: 3 Weeks, Reason: Provider Name:Jason Chiang ry, 10/17/2025 09:00:00 AM, [facility] [address] [facility], [address], [place], [id number], Progress Notes * Dada CARVEROB:1955 (69 yo M)Acc No.[id number]:08/28/2024 Progress Notes Patient: Alex SIM Provider: Keila Cornejo M.D. :1955 A ge:68 Y S ex:Male Date:08/28/2024 Address:[address] [place] [address], [place], [id number] Subjective: * Chief Complaints: * 1 . 4 week follow up. * HPI: C ardiology: 68 year old male presents with c/o Blood Pressure Elevated P t here for 1 mo f/u. Pt started on Irbesartan 150mg 07/26/2024. Pt states his bp did remain elevated so he has been taking 300mg Irbesartan for at least 2 weeks. Pt has continued to check bp at home and it has continued to be elevated . * ROS: D ERMATOLOGY: no R bronwyn. [...] 08/2022. * Hospitalization/Major Diagno stic Procedure: D cassyies Past Hospitalization. * Family History: F ather: [...] Tablet 1 tablet Orally once daily , Taking Irbesartan 150 MG Tablet 2 tablets Orally Once a day , Medication List reviewed and reconciled with the patient * Allergies: N .K.D.A. Objective: * Vitals: W t:193, Temp:97.8, BP:160/100, HR:67, Nurse:antonia, Ht: 69.25, BMI:28.29. * Examination: C ardiology: General Appearance: p leasant, NAD. H eart sounds: R RR, normal S1, S2. L ungs: c lear, no rales or wheezes. E xtremities: n o leg edema. Assessment: * Assessment: 1. E ssential hypertension - I10 (Primary) 2 . P rimary insomnia - F51.01? Plan: * Treatment: 2. P rimary insomnia Refill traZODone HCl Tablet, 50 MG, 3 tablets, Orally, Once a day at bedtime, 90 days, 270, Refills 1. * Procedure Codes: G 2211 Complex e/m visit add on * Follow Up: 3 Weeks * Images: Billing Information: * Visit Code: 99194 Office Visit, Est Pt., Level 3. * Procedure Codes: G2211 Complex e/m visit add on. * Electronic signature of Tess Cornejo MD on 08/08/2025 at 08:44 AM EST Sign off status: Pending * Provider: Keila Cornejo M.D. Date: 0 08/28/2024 Generated for Saige salas/Broderick/Sandraitting on: 10/09/2024 08:44 AM EST History and Physical Notes * HPI (History of Present Illness) Category Sub-Category Detail Notes Category Not es Cardiology Blood Pressure Elevated Pt here for 1 mo f/u. Pt started on Irbesartan 150mg 07/26/2024. Pt states his bp did remain elevated so he has been taking 300mg Irbesartan for at least 2 weeks. Pt has continued to check bp at home and it has continued to be elevated Examination Category Sub-Category Detail Notes Category Not es Cardiology Lungs: clear, no rales or wheezes Heart sounds: RRR, normal S1, S2 Extremities: no leg edema General Appearance: pleasant, NAD
--- OUTSIDE RECORDS SUMMARY | 2024-09-18 04:45 | XMS_ITS ---
Author Organization [facility] Address [address] [facility] [address] [id number] Care Team Providers Care Fiberglass Finisher Name Role Phone Jason Cornejo Primary Care Provider Allergies No Known Allergies Results Component Value Reference Range Notes P-Basic Metabolic Panel (BMP ) Reviewed date:09/19/2024 09:07:10 AM Interpretation:gluc 126, bun 31 Performing Lab: Notes/Report: Test performed by [facility], [address] , [address], [place] [address] Venkat Jose MD, Network Intern CLIA: [id number] Sodium 139 135-145 mmol/L Potassium 4.5 3.5-5.3 mmol/L Chloride 103 97-108 mmol/L CO2 26 22-32 mmol/L Glucose 126 65-99 mg/dL BUN 31 8-23 mg/dL Creatinine 1.15 0.70-1.30 mg/dL Calcium 8.8 8.6-10.4 mg/dL eGFR by Creatinine 70 >59 mL/min/1.73m2 REASON FOR VISIT 3 weeks Medications Medication SIG (Take, Route, Frequency, Duration) Notes Start Date End Date Status Finasteride 5 MG 1 tablet Orally once daily; Duration: 90 days Active Irbesartan-hydroCHLOROthiaz gm 150-12.5 MG 1 tablet Orally Once a day 08/28/2024 Active Tamsulosin HCl 0.4 MG 1 cap(s) orally on ce a day; Duration: 90 days Active traZODone HCl 50 MG 3 tablets Orally Onc e a day at bedtime; Duration: 90 days Active Metoprolol Tartrate 37.5 MG 1 tab(s) ora lly 2 times a day Active Atorvastatin Calcium 40 MG 1 tablet Oral ly Once a day; Duration: 90 days Active Omeprazole 20 MG 1 cap(s) orally once a day; Duration: 90 days Active Meloxicam 7.5 MG 1 tablet Orally Once a day; Duration: 90 days Active Aspirin 81 MG 1 tab(s) orally once a day Active amLODIPine Besylate 5 MG 1 tablet Orally Once a day; Duration: 90 days 08/28/2024 Active Vital Signs Weight 194.4 lbs 09/18/2024 Blood pressure systolic 110 mm Hg 09/18/19 25 Blood pressure diastolic 70 mm Hg 025 Heart Rate 71 /min 09/18/2024 Height 69.25 in 09/18/2024 BMI 28.50 kg/m2 09/18/2024 Encounters Encounter Location Date Provider Diagnosis [facility] [address] [place] [id number] 09/18/2024 Jason Cornejo Essential hypertensi on I10 Assessments Encounter Date Diagnosis (ICD Code) Assessment Notes Treatment Notes Treatment Clinical Notes Section Notes 09/18/2024 Essential hypertension (ICD-10 - I10) Plan Of Treatment Medication Medication Name Sig Start Date Stop Date Notes Irbesartan-hydroCHLOROthiazi de 150-12.5 MG 1 tablet Orally Once a day 08/28/2024 Metoprolol Tartrate 37.5 MG 1 tab(s) ora lly 2 times a day amLODIPine Besylate 5 MG 1 tablet Orally Once a day; Duration: 90 days 08/28/2024 Next Appt Details Follow Up: 7 Months, Reason: Provider Name:Jason Chiang ry, 10/17/2025 09:00:00 AM, [address], [address], [place], [id number], Progress Notes * Dada CARVEROB:1955 (69 yo M)Acc No.[id number]:09/18/2024 Progress Notes Patient: Alex SIM Provider: Keila Cornejo M.D. :1955 A ge:68 Y S ex:Male Date:09/18/2024 Address:[address] [place] [address] [address], [facility] Subjective: * Chief Complaints: * 1 . 3 weeks. * HPI: C ardiology: 68 year old male presents with c/o Blood Pressure Elevated P t here for 3 week f/u. Pt started on Amlodipine 5 mg and Irbesartan-HCTZ 300 mg- 12.5 mg 08/28/2023. Pt called 09/12 stating that his bp was running low so he has been taking hald dose of Irbesartan-HCTZ. Pt states he is doing well on current doses of medication . * ROS: D ERMATOLOGY: no R [...] tab(s) orally once a day , Taking Meloxicam 7.5 MG Tablet 1 tablet Orally Once a day , Taking Omeprazole 20 MG Capsule Delayed Release 1 cap(s) orally once a day , Taking Atorvastatin Calcium 40 MG Tablet 1 tablet Orally Once a day , Taking Finasteride 5 MG Tablet 1 tablet Orally once daily , Taking amLODIPine Besylate 5 MG Tablet 1 tablet Orally Once a day , Taking traZODone HCl 50 MG Tablet 3 tablets Orally Once a day at bedtime , Taking Tamsulosin HCl 0.4 MG Capsule 1 cap(s) orally once a day , Taking Metoprolol Tartrate 37.5 MG Tablet 1 tab(s) orally 2 times a day , Taking Irbesartan-hydroCHLOROthiazide 150-12.5 MG Tablet 1 tablet Orally Once a day , Medication List reviewed and reconciled with the patient * Allergies: N .K.D.A. Objective: * Vitals: W t:194.4, Temp:97.8, BP:110/70, HR:71, Nurse:antonia, Ht: 69.25, BMI:28.50. * Examination: C ardiology: General Appearance: p leasant, NAD. H eart sounds: R RR, normal S1, S2. L ungs: c lear, no rales or wheezes. E xtremities: n o leg edema. Assessment: * Assessment: 1. E ssential hypertension - I10 (Primary) Plan: * Treatment: Value Reference Range B UN 31 H 8-23 - mg/dL * C alcium 8.8 8.6-10.4 - mg/dL * C hloride 103 97-108 - mmol/L * C O2 26 22-32 - mmol/L * C reatinine 1.15 0.70-1.30 - mg/dL * G lucose 126 H 65-99 - mg/dL * P otassium 4.5 3.5-5.3 - mmol/L * S odium 139 135-145 - mmol/L * e GFR by Creatinine 70 >59 - mL/min/1.73m2 * Huma Wick 09/19/2024 9:07: 06 AM >See phone encounter * Procedure Codes: G 2211 Complex e/m visit add on * Follow Up: 7 Months * Images: Billing Information: * Visit Code: 47680 Office Visit, Est Pt., Level 3. * Procedure Codes: G2211 Complex e/m visit add on. * Electronic signature of Tess Cornejo MD on 08/08/2025 at 08:44 AM EST Sign off status: Pending * Provider: Keila Cornejo M.D. Date: 0 09/18/2024 Generated for Saige salas/Broderick/Sandraitting on: 10/09/2024 08:44 AM EST History and Physical Notes * HPI (History of Present Illness) Category Sub-Category Detail Notes Category Not es Cardiology Blood Pressure Elevated Pt here for 3 week f/u. Pt started on Amlodipine 5 mg and Irbesartan-HCTZ 300 mg-12.5 mg 08/28/2023. Pt called 09/12 stating that his bp was running low so he has been taking hald dose of Irbesartan-HCTZ. Pt states he is doing well on current doses of medication Examination Category Sub-Category Detail Notes Category Not es Cardiology Lungs: clear, no rales or wheezes Heart sounds: RRR, normal S1, S2 Extremities: no leg edema General Appearance: pleasant, NAD
--- OUTSIDE RECORDS SUMMARY | 2025-04-16 04:15 | XMS_ITS ---
Author Organization [facility] Address [address] [id number] Care Team Providers Care Proposal Coordinator Name Role Phone Jason Cornejo Primary Care Provider Allergies No Known Allergies Results Component Value Reference Range Notes P-Comprehensive Metabolic Pa cec[place] (CMP) Reviewed date:04/17/2025 12:51:50 PM Interpretation:gluc 103, gluc 29 Performing Lab: Notes/Report: CLIA: [id number] Venkat Jose MD, [employer] [email or web address] , [address], [place] [address] Test performed by [facility], [facility] Sodium 138 135-145 mmol/L Potassium 5.3 3.5-5.3 mmol/L Chloride 103 97-108 mmol/L CO2 25 20-32 mmol/L Glucose 103 65-99 mg/dL BUN 29 8-23 mg/dL Creatinine 1.30 0.70-1.30 mg/dL Calcium 9.4 8.6-10.4 mg/dL eGFR by Creatinine 60 >59 mL/min/1.73m2 Protein 6.4 6.0-8.3 g/dL Albumin 4.2 3.5-5.3 g/dL Alkaline Phosphatase 73 40-129 IU/L ALT (SGPT) 19 <5-55 IU/L AST (SGOT) 24 <5-46 IU/L Bilirubin, Total 1.0 <0.2-1.2 mg/dL A/G Ratio 1.9 1.1-2.5 P-Lipid Panel Reviewed date:04/17/2025 12:51:50 PM Interpretation:Normal Performing Lab: Notes/Report: Test performed by [facility], [address]az[address], [place] [address] Venkat Jose MD, [employer]ner CLIA: [id number] Cholesterol 166 <200 mg/dL Triglycerides 100 <150 mg/dL HDL Cholesterol 69 >39 mg/dL Cholesterol / HDL Ratio 2.41 0.00-4.99 Ratio Non-HDL Cholesterol 97 <130 mg/dL LDL Cholesterol (Calculation) 77 <130 mg/dL LDL Cholesterol Levels* Less than 100 mg/dL Optimal 100 to 129 mg/dL Near Optimal/ Above Optimal 130 to 159 mg/dL Borderline High 160 to 189 mg/dL High 190 mg/dL and above Very High * Categories as recommended by the 2004 ATPIII guidelines LDL/HDL Ratio 1.1 <3.3 Ratio LDL Cholesterol Patient History Test Date: 04/12/2024 LDL Results: 66 Units: mg/dL % Change: - Test Date: 04/16/2025 LDL Results: 77 Units: mg/dL % Change: +16% P-Magnesium Reviewed date:04/17/2025 12:51:50 PM Interpretation:Normal Performing Lab: Notes/Report: Test performed by [facility] [employer] [address] , [address], [place] [address] Venkat Jose MD, [employer]ing Machine [employer]ner CLIA: [id number] Magnesium 2.2 1.6-2.4 mg/dL P-Phosphorus Reviewed date:04/17/2025 12:51:51 PM Interpretation:Normal Performing Lab: Notes/Report: Test performed by [facility] , [address], [place] [address] Venkat Jose MD, [employer]ing Machine [employer]ner CLIA: [id number] Phosphorus 4.1 2.5-4.5 mg/dL P-PSA Reviewed date:04/17/2025 12:51:51 PM Interpretation:Normal Performing Lab: Notes/Report: Test performed by [facility] [address] , [address], [place] [address] Venkat Jose MD, Channeling Machine [employer]ner CLIA: [id number] PSA 0.44 <4.00 ng/mL Please note this is an ultrasensitive PSA assay with a lower limit of detection of 0.014 ng/mL. This test is performed by the Nolan ECLIA methodology. Values obtained with different assay methods or kits cannot be directly compared. P-TSH reflex to FT4 Reviewed date:04/17/2025 12:51:51 PM Interpretation:Normal Performing Lab: Notes/Report: Test performed by [facility] [address] , [address], [place] [address] Venkat Jose MD, [employer]ing Machine [employer]ner CLIA: [id number] TSH reflex to FT4 1.50 0.43-5.25 mU/L P-Microalbumin/Creatinine, R andom Urine Sample Reviewed date:04/17/2025 12:51:51 PM Interpretation:Normal Performing Lab: Notes/Report: Test performed by [facility] [address], [place] [id number] Venkat Jose MD, [employer] Machine [employer]ner CLIA: [id number] Albumin/Creatinine Ratio, Urine 3 0-30 ug/mg Microalbumin, Urine, Random 0.4 Creatinine, Urine 142.0 REASON FOR VISIT 6 months Medications Medication SIG (Take, Route, Frequency, Duration) Notes Start Date End Date Status Tamsulosin HCl 0.4 MG 1 cap(s) orally on ce a day; Duration: 90 days Active Meloxicam 7.5 MG 1 tablet Orally Once a day; Duration: 90 days Active Finasteride 5 MG 1 tablet Orally once daily; Duration: 90 days Active Omeprazole 20 MG 1 cap(s) orally once a day; Duration: 90 days Active Aspirin 81 MG 1 tab(s) orally once a day Active traZODone HCl 50 MG 2 tablets Orally Onc e a day at bedtime; Duration: 90 days Active Metoprolol Tartrate 37.5 MG 1 tab(s) ora lly 2 times a day Active Atorvastatin Calcium 40 MG 1 tablet Oral ly Once a day; Duration: 90 days Active Irbesartan 300 MG 1 tablet Orally Once a day; Duration: 90 days 04/16/2025 Active Vital Signs Weight 187 lbs 04/16/2025 Blood pressure systolic 138 mm Hg 04/16/20 25 Blood pressure diastolic 86 mm Hg 025 Heart Rate 60 /min 04/16/2025 Height 69.25 in 04/16/2025 BMI 27.41 kg/m2 04/16/2025 Encounters Encounter [facility] Date [facility] [address] [place] [id number] 04/16/2025 Jason Cornejo Essential hypertensi on I10 ; Hyperlipidemia, unspecified hyperlipidemia type E78.5 ; Benign prostatic hyperplasia, presence of lower urinary tract symptoms unspecified, unspecified morphology N40.0 ; Primary insomnia F51.01 ; 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 angina pectoris I25.10 ; Dizziness R42 ; Prostate cancer screening Z12.5 ; Colon cancer screening Z12.11 and BMI 27.0-27.9,adult Z68.27 Assessments Encounter Date Diagnosis (ICD Code) Assessment Notes Treatment Notes Treatment Clinical Notes Section Notes 04/16/2025 Essential hypertension (ICD-10 - I10) 04/16/2025 Hyperlipidemia, unspecified hyperlipidemia type (ICD-10 - E78.5) 04/16/2025 Benign prostatic hyperplasia, presence of lower urinary tract symptoms unspecified, unspecified morphology (ICD-10 - N40.0) 04/16/2025 Primary insomnia (ICD-10 - F51.01) 04/16/2025 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 angina pectoris (ICD-10 - I25.10) 04/16/2025 Dizziness (ICD-10 - R42) 04/16/2025 Prostate cancer screening (ICD-10 - Z12.5) 04/16/2025 Colon cancer screening (ICD-10 - Z12.11) 04/16/2025 BMI 27.0-27.9,adult (ICD-10 - Z68.27) Plan Of Treatment Medication Medication Name Sig Start Date Stop Date Notes Irbesartan-hydroCHLOROthiazi de 150-12.5 MG 1 tablet Orally Once a day Omeprazole 20 MG 1 cap(s) orally once a day; Duration: 90 days Irbesartan 300 MG 1 tablet Orally Once a day; Duration: 90 days 04/16/2025 Pending Test Test Name Order Date colonoscopy 04/16/2025 Next Appt Details Follow Up: 6 Months, Reason: Provider Name:Jason Chiang ry, 10/17/2025 09:00:00 AM, [address], [address] [place] [address], [phone], Progress Notes * ISMAEL DadaOB:1955 (69 yo M)Acc No.[id number]:04/16/2025 Progress Notes Patient: Alex SIM Provider: Keila Cornejo M.D. :1955 A ge:69 Y S ex:Male Date:04/16/2025 Address:[address] [place] [address] [employer] [facility] [id number] Subjective: * Chief Complaints: * 1 . 6 months. * HPI: C ardiology: 69 year old male presents with c/o Dizziness P t sts that he has been experiencing some episodes of dizziness. The spells don't last long but have been occurring more often. c/o Blood Pressure Elevated P t presents today for a 6 month check up. Pt is fasting today. * ROS: D ERMATOLOGY: no R bronwyn. n o H jason. G ASTROENTEROLOGY: no N ausea. n o V omiting. D iarrhea y es.? U ROLOGY: no D ifficulty urinating. n o B lood in urine. * Medical History: C oronary Artery Disease, Dx 2022, Hypertension, Hyperlipidemia, Dyspepsia, Colon Polyps, BPH, Degenerative Disc Disease, Kdney Stones, Retinal detachment, left eye, 2017, Cardiolyte stress test normal February 2019, Sleep apnea. * Surgical History: C olonoscopy (polyps) 08/2008, EGD (normal) 06/2009, Colonoscopy (polyps) 09/2013, LT Cataract Removal 04/2018, Retina and Coronia tear repairs (multiple times) 07/2018, LT Eye Scleral Buckle 10/18/2018, Coronary Artery Bypass Graft x 5 Vessels 08/2022. * Family History: F ather: alive, hypertension, [...] tab(s) orally once a day , Taking traZODone HCl 50 MG Tablet 2 tablets Orally Once a day at bedtime , Taking Metoprolol Tartrate 37.5 MG Tablet 1 tab(s) orally 2 times a day , Taking Omeprazole 20 MG Capsule Delayed Release 1 cap(s) orally once a day , Taking Atorvastatin Calcium 40 MG Tablet 1 tablet Orally Once a day , Taking Finasteride 5 MG Tablet 1 tablet Orally once daily , Taking Irbesartan-hydroCHLOROthiazide 150-12.5 MG Tablet 1 tablet Orally Once a day , Taking Tamsulosin HCl 0.4 MG Capsule 1 cap(s) orally once a day , Taking Meloxicam 7.5 MG Tablet 1 tablet Orally Once a day , Discontinued amLODIPine Besylate 5 MG Tablet 1 tablet Orally Once a day , Medication List reviewed and reconciled with the patient * Allergies: N .K.D.A. Objective: * Vitals: W t: 187, Temp: 97.6, BP: 138/86, HR: 60, Nurse: CASSIE/DANILO, Ht: 69.25, BMI:27.41. * Examination: C ardiology: General Appearance: p leasant, NAD. H eart sounds: R RR, normal S1, S2. L ungs: c lear, no rales or wheezes. E xtremities: n o leg edema. Assessment: * Assessment: 1. E ssential hypertension - I10 (Primary) 2 . H yperlipidemia, unspecified hyperlipidemia type - E78.5 3 . B enign prostatic hyperplasia, presence of lower urinary tract symptoms unspecified, unspecified morphology - N40.0 4 . P rimary insomnia - F51.01 5 . C oronary artery disease involving little traverse coronary artery of little traverse heart without angina pectoris - I25.10 6 . D izziness - R42 ? 7 . P rostate cancer screening - Z12.5 8 . C olon cancer screening - Z12.11 9 . B FL 27.0-27.9,adult - Z68.27 Plan: * Treatment: Value Reference Range A /G Ratio 1.9 1.1-2.5 - * A lbumin 4.2 3.5-5.3 - g/dL * A lkaline Phosphatase 73 40-129 - IU/L * A LT (SGPT) 19 <5-55 - IU/L * A ST (SGOT) 24 <5-46 - IU/L * B ilirubin, Total 1.0 <0.2-1.2 - mg/dL * B UN 29 H 8-23 - mg/dL * C alcium 9.4 8.6-10.4 - mg/dL * C hloride 103 97-108 - mmol/L * C O2 25 20-32 - mmol/L * C reatinine 1.30 0.70-1.30 - mg/dL * G lucose 103 H 65-99 - mg/dL * P otassium 5.3 3.5-5.3 - mmol/L * S odium 138 135-145 - mmol/L * P rotein 6.4 6.0-8.3 - g/dL * e GFR by Creatinine 60 >59 - mL/min/1.73m2 * Becky Alvarado 04/17/20 12:51:43 PM EDT > See phone encounter ?LAB: P-Microalbumin/Creatinine, Random Urine Sample (Collection Date & Time - 04/16/2025 09:18 AM)?Normal* Value Reference Range A lbumin/Creatinine Ratio, Urine 3 0-30 - ug /mg * C reatinine, Urine 142.0 - mg/dL * M icroalbumin, Urine, Random 0.4 - mg/dL * Becky Alvarado 04/17/20 12:51:43 PM EDT > See phone encounter 2.?Hyperlipidemia, unspecified hyperlipidemia type?LAB: P-Comprehensive Metabolic Panel (CMP) (Collection Date & Time - 04/16/2025 09:18 AM)?gluc 103, gluc 29* Value Reference Range A /G Ratio 1.9 1.1-2.5 - * A lbumin 4.2 3.5-5.3 - g/dL * A lkaline Phosphatase 73 40-129 - IU/L * A LT (SGPT) 19 <5-55 - IU/L * A ST (SGOT) 24 <5-46 - IU/L * B ilirubin, Total 1.0 <0.2-1.2 - mg/dL * B UN 29 H 8-23 - mg/dL * C alcium 9.4 8.6-10.4 - mg/dL * C hloride 103 97-108 - mmol/L * C O2 25 20-32 - mmol/L * C reatinine 1.30 0.70-1.30 - mg/dL * G lucose 103 H 65-99 - mg/dL * P otassium 5.3 3.5-5.3 - mmol/L * S odium 138 135-145 - mmol/L * P rotein 6.4 6.0-8.3 - g/dL * e GFR by Creatinine 60 >59 - mL/min/1.73m2 * Becky Alvarado 04/17/20 12:51:43 PM EDT > See phone encounter ?LAB: P-Lipid Panel (Collection Date & Time - 04/16/2025 09:18 AM)?Normal* Value Reference Range C holesterol / HDL Ratio 2.41 0.00-4.99 - Ratio * C holesterol 166 <200 - mg/dL * H DL Cholesterol 69 >39 - mg/dL * L DL Cholesterol (Calculation) 77 <130 - mg/d L * L DL/HDL Ratio 1.1 <3.3 - Ratio * N on-HDL Cholesterol 97 <130 - mg/dL * T riglycerides 100 <150 - mg/dL * Becky Alvarado 04/17/20 12:51:43 PM EDT > See phone encounter ?LAB: P-TSH reflex to FT4 (Collection Date & Time - 04/16/2025 09:18 AM)? Normal* Value Reference Range T SH reflex to FT4 1.50 0.43-5.25 - mU/L * Becky Alvarado 04/17/20 12:51:43 PM EDT > See phone encounter 3.?Dizziness?LAB: P-Magnesium (Collection Date & Time - 04/16/2025 09:18 AM)?Normal* Value Reference Range M agnesium 2.2 1.6-2.4 - mg/dL * Becky Alvarado 04/17/20 12:51:43 PM EDT > See phone encounter ?LAB: P-Phosphorus (Collection Date & Time - 04/16/2025 09:18 AM)?Normal* Value Reference Range P hosphorus 4.1 2.5-4.5 - mg/dL * Becky Alvarado 04/17/20 12:51:43 PM EDT > See phone encounter 4.?Prostate cancer screening?LAB: P-PSA (Collection Date & Time - 04/16/2025 09:18 AM)?Normal* Value Reference Range P SA 0.44 <4.00 - ng/mL * Becky Alvarado 04/17/20 12:51:43 PM EDT > See phone encounter 5.?Colon cancer screening?Imaging: colonoscopy (Performed Date - 06/19/2025)?repeat in 10 years* Value Reference Range r epeat study: 10 years * Priscila العلي 03/22 11:23:29 AM EDT > faxed to Dr. Rodriguez 6.?Others? Refill Omeprazole Capsule Delayed Release, 20 MG, 1 cap(s), orally, once a day, 90 days, 90, Refills 1.?? * Procedure Codes: G 2211 Complex e/m visit add on, 1036F TOBACCO NON-USER, G8420 BMI<30 AND >=22 CALC & DOCU, G8950 PREHTN/HTN BP DOC INDCD F/U DOC, G8752 MOST RECENT SYSTOLIC BP < 140MM HG, G8754 MOST RECENT DIASTOLIC BP < 90MM HG, 3017F COLORECTAL CA SCREEN DOC REV * Preventive Medicine: Screening / Special Tests: C olonoscopy 1 , repeat 10 years. * Follow Up: 6 Months * Images: Billing Information: * Visit Code: 72048 Office Visit, Est Pt., Level 4. * Procedure Codes: G2211 Complex e/m visit add on. 1036F TOBACCO NON-USER. G8420 BMI<30 AND >=22 CALC & DOCU. G8950 PREHTN/HTN BP DOC INDCD F/U DOC. G8752 MOST RECENT SYSTOLIC BP < 140MM HG. G8754 MOST RECENT DIASTOLIC BP < 90MM HG. 3017F COLORECTAL CA SCREEN DOC REV. * Electronic signature of Tess Cornejo MD on 08/08/2025 at 08:44 AM EST Sign off status: Pending * Provider: Keila Cornejo M.D. Date: 0 04/16/2025 Generated for Saige salas/Broderick/Patricia on: 1 10/09/2024 08:44 AM EST History and Physical Notes * HPI (History of Present Illness) Category Sub-Category Detail Notes Category Not es Cardiology Dizziness Pt sts that he h as been experiencing some episodes of dizziness. The spells don't last long but have been occurring more often Blood Pressure Elevated Pt presents toda y for a 6 month check up. Pt is fasting today Examination Category Sub-Category Detail Notes Category Not es Cardiology Lungs: clear, no rales or wheezes Heart sounds: RRR, normal S1, S2 Extremities: no leg edema General Appearance: pleasant, NAD
--- OUTSIDE RECORDS SUMMARY | 2025-06-09 09:00 | XMS_ITS | Encounter Summary ---
Author Organization [place] [address] Care Team Providers Care Seater Assembler Name Role Phone Jason Cornejo MD Primary Care Provider + [phone] Cristopher De La Garza MD Unavailable Reason for Visit * Reason Comments Follow-up 1 yr fu Encounter Details Date Type Department Care Team (Late st Contact Info) Description 06/09/2025 10:00 AM EDT Office Visit [facility] [address], [place] [id number] Cristopher De La Garza MD [address] [place] [address] Coronary artery disease involving coronary bypass graft of [place] heart without angina pectoris (Primary Dx); Dyslipidemia; Hypertension, unspecified type; S/P CABG x 5; CAD in [place] artery Social History Tobacco Use Types Packs/Day Years Used Date Smoking Tobacco: Never Smokeless Tobacco: Never Tobacco Cessation:Counseling Given: Not Answered Alcohol Use Standard Drinks/Week Comments Not Currently 0 (1 standard drink = 0.6 oz pur e alcohol) Sexually Active Control Partners Comments Not Currently Sex and Gender Information Value Date Recorded Sex Assigned at Not on file Legal Sex Male 12:19 PM EDT Gender Identity Not on file Sexual Orientation Not on file documented as of this encounter Last Filed Vital Signs Vital Sign Reading Time Taken Comments Blood Pressure 160/94 06/09/2025 9:56 AM EDT Pulse 59 06/09/2025 9:56 AM EDT Temperature - - Respiratory Rate - - Oxygen Saturation 98% 06/09/2025 9:56 AM EDT Inhaled Oxygen Concentration - - Weight 88 kg (194 lb) 06/09/2025 9:56 AM EDT Height 175.3 cm (5' 9 ) 06/09/2025 9:56 AM EDT Body Mass Index 28.65 06/09/2025 9:56 AM EDT documented in this encounter Ordered Prescriptions Prescription Sig Dispense Quantity Refills Last Filled Start Date End Date amLODIPine (NORVASC) 5 mg Oral Tablet Take 1 Tablet by mouth daily. 30 Tablet 11 06/09/2025 documented in this encounter Progress Notes * Cristopher De La Garza MD - 06/09/2025 10:00 AM EDT Images from the original note were not included. Cardiology Progress Note Cristopher De La Garza MD, [facility], [facility] Patient Name: Alex Carver : 1955 Subjective Chief Complaint Patient presents with Follow-up 1 yr fu HPI Alex Carver is here today for a Follow up 69 HTN Father with CABG 08/2022 : SOBOE : CABG SVGx4 BELLO 04/2024: Atypival poain Stress test 05/2024: WNL Here for f/u: 06/09/25 Had High BP Given Irbasartan and HCTZ --> Got diuzzt Switched to Irbasartan 300 Assessment Alex was seen today for follow-up. Diagnoses and all orders for this visit: Coronary artery disease involving coronary bypass graft of [place] heart without angina pectoris - POCT EKG - LIPID SCREEN; Future - HEPATIC FUNCTION PANEL; Future - BASIC METABOLIC PANEL; Future Dyslipidemia - LIPID SCREEN; Future - HEPATIC FUNCTION PANEL; Future - BASIC METABOLIC PANEL; Future Hypertension, unspecified type - LIPID SCREEN; Future - HEPATIC FUNCTION PANEL; Future - BASIC METABOLIC PANEL; Future S/P CABG x 5 - LIPID SCREEN; Future - HEPATIC FUNCTION PANEL; Future - BASIC METABOLIC PANEL; Future CAD in [place] artery - LIPID SCREEN; Future - HEPATIC FUNCTION PANEL; Future - BASIC METABOLIC PANEL; Future Other orders - amLODIPine (NORVASC) 5 mg Oral Tablet; Take 1 Tablet by mouth daily. Plan CAD S/p CABG 2022 ASA Lipitor HTN Metoprolol Irbasartan- no HCTZ sec to dizziness Will add Norvasc 5 Check BP Dyslipidemia Lipitor Check Lipids LE edema Same Any additional medication, or change in the current medication regimen, or potential side effects was discussed PAST MEDICAL HISTORY: Past Medical History[1] Reviewed and non contributory unless stated above under HPI. PAST SURGICAL HISTORY: Surgical History[2] Reviewed and non contributory unless stated above under HPI. ALLERGIES: Allergies[3] Reviewed and non contributory unless stated above under HPI. FAMILY HISTORY: Family History[4] Reviewed and non contributory unless stated above under HPI. OUTPATIENT MEDICATIONS: Medications Prior to Visit[5] Reviewed and non contributory unless stated above under HPI. SOCIAL HISTORY: Social History Socioeconomic History Marital status: Spouse name: Not on file Number of children: Not on file Years of education: Not on file Highest education level: Not on file Occupational History Not on file Tobacco Use Smoking status: Never Smokeless tobacco: Never Vaping Use Vaping status: Never Used Substance and Sexual Activity Alcohol use: Not Currently Drug use: Not Currently Sexual activity: Not Currently Other Topics Concern Not on file Social History Narrative Not on file Social Drivers of Health Financial Resource Strain: Not on file Food Insecurity: Not on file Transportation Needs: Not on file Physical Activity: Not on file Stress: Not on file Social Connections: Not on file Intimate Partner Violence: Not on file Housing Stability: Not on file Reviewed and non contributory unless stated above under HPI. ROS: Constitutional: No fever or chills- No weight loss or gain- Some fatigue- weakness Head:Ear, Nose: No visual changes, No headache, no ear discharge Neck:No sore throat, or neck pain CVS:As mentioned in the HPI- No edema, orthopnea or PND Pulmonary:No cough or sputum production, No wheezing. No MALISSA Abdomen: No pain,Dysphagia,Heart burn, No hematemesis/ hematochezia . :No frequency, polyuria or hemturia Endocrine: No thyroid disease- Polyuria or polydipsia Musculoskelatal: Has Arthralgias and Mylagias- BIOINFORMATICS ASSISTANT:No TIA - Stroke - No balance abnormalities- No dysarthria Skin: No rash or eruptions Hematological: No easy bruisability or chronic infections or anemia Psychiatric:No hallucinations- anxiety Objective Vitals: 06/09/25 0956 BP: 160/94 Pulse: 59 SpO2: 98% EXAM: CONSTITUTIONAL: Vital signs noted. No acute distress Well developed well nourished EYES: Sclera white,conjuctiva clear.No lid-lag. PERRLA ENT: Oropharynx clear/no erythema Normal hearing-Gums pink-Good dentition LYMPHATICS: No lymphadenopathy noted NECK: No masses No thyromegaly RESPIRATORY: Chest symmetric, nonlabored breathing. Normal breath sounds CTA: No Rhonchi-- No Rales CVS: No JVD -No Bruit No Lifts/heaves. Normal S1 S2- . No murmur. No LE edema GI: Soft, nontender, no organomegaly, no distension. No masses. Nl Bowel sounds NEUROLOGIC: Alert, oriented X 3- Grossly intact, nonfocal CN intact SKIN: No rash- warm. MUSCULOSKELETAL: No cyanosis/ischemia- No lesions. Joints: WNL No deforities No results found for this visit on 06/09/25. Labs No results found for: CHOLHDL Lab Results Component Value Date CREATININE 1.21 09/13/2022 BUN 29 (H) 09/13/2022 NA 135 (L) 09/13/2022 K 4.2 09/13/2022 CL 102 09/13/2022 CO2 26 09/13/2022 Lab Results Component Value Date ALT 23 12/27/2022 AST 22 12/27/2022 ALKPHOS 81 12/27/2022 Lab Results Component Value Date WBC 12.7 (H) 09/13/2022 HGB 10.0 (L) 09/13/2022 HCT 29.4 (L) 09/13/2022 MCV 91.3 09/13/2022 PLT 257 09/13/2022 Lab Results Component Value Date HGBA1C 6.0 (H) 08/11/2022 IMPRESSION: Patient Active Problem List Diagnosis Date Noted S/P CABG x 5 09/15/2022 CAD in [place] artery 09/06/2022 Coronary artery disease involving [place] coronary artery of [place] heart without angina pectoris 08/01/2022 High cholesterol 05/06/2022 Alternating esotropia 01/29/2021 Chorioretinal scar of left eye 01/29/2021 Corneal ulcer of right eye 01/29/2021 PCO (posterior capsular opacification), right 01/29/2021 The chart was completed using voice recognition technology and may contain unintended errors. [1] Past Medical History: Diagnosis Date High cholesterol Prostate disorder Shortness of breath Sleep apnea [2] Past Surgical History: Procedure Laterality Date COLONOSCOPY CORONARY ARTERY BYPASS GRAFT N/A 09/06/2022 coronary artery bypass graft x5 utilizing left internal mammary artery graft x1, endoscopic vein harvest of greater right saphenous vein converted to open harvest of left greater saphenous vein x4 , 3D transesophageal echocardiogram; Surgeon: Aldo Barber MD; Location: [facility]; Service: [facility] VASECTOMY WISDOM TOOTH EXTRACTION [3] No Known Allergies [4] Family History Problem Relation Age of Onset High Cholesterol Mother Hypertension Mother Heart Surgery Mother Hypertension Father Heart Surgery Father Hypertension Brother Heart Attack Paternal Grandfather Anesth Problems Neg Hx [5] Outpatient Medications Prior to Visit Medication Sig Dispense Refill acetaminophen 325 mg Oral Tab Take 2 Tablets by mouth every 4 hours as needed for Pain. aspirin 81 mg Oral Tablet, Chewable TAKE 1 TABLET BY MOUTH DAILY. 90 Tablet 2 atorvastatin (LIPITOR) 40 mg Oral Tablet TAKE 1 TABLET BY MOUTH NIGHTLY. 90 Tablet 1 finasteride (PROSCAR) 5 mg Oral Tablet Take 5 mg by mouth daily. irbesartan (AVAPRO) 300 mg Oral Tablet Take 300 mg by mouth nightly. metoprolol tartrate 37.5 mg Oral Tablet Take 1 Tablet by mouth 2 times daily. 90 Tablet 0 omeprazole (PRILOSEC) 20 mg Oral Capsule, Delayed Release(E.C.) Take 20 mg by mouth daily. tamsulosin (FLOMAX) 0.4 mg Oral Capsule Take 0.4 mg by mouth daily. traZODone (DESYREL) 50 mg Oral Tablet Take 100 mg by mouth nightly. No facility-administered medications prior to visit. documented in this encounter Plan of Treatment Upcoming Encounters Date Type Department Care Team (Late st Contact Info) Description 06/10/2026 10:15 AM EDT Office Visit [facility] [address] [place] [id number] Cristopher De La Garza MD [address] [place] [address] documented as of this encounter Procedures Procedure Name Priority Date/Time Associated Diagnosis Comments POCT EKG Routine 06/09/2025 9:57 AM EDT Coronary artery disease involving coronary bypass graft of [place] heart without angina pectoris documented in this encounter Results * BASIC METABOLIC PANEL (06/09/2025 10:55 AM EDT) Sodium 137 136 - 145 mmol/L 06/09/2025 11:53 AM EDT [facility] Potassium 4.8 3.5 - 5.0 mmol/L 06/09/2025 11:53 AM EDT [facility] Chloride 104 98 - 107 mmol/L 06/09/2025 11:53 AM EDT [facility] Total CO2 24 22 - 29 mmol/L 06/09/2025 11:53 AM EDT [facility] Anion Gap 9 7 - 16 mmol/L 06/09/2025 11:53 AM EDT [facility] Calcium 8.8 8.8 - 10.4 mg/dL 06/09/2025 11:53 AM EDT [facility] Glucose Lvl 96 70 - 99 mg/dL 06/09/2025 11:53 AM EDT [facility] BUN 17 8 - 23 mg/dL 06/09/2025 11:53 AM EDT [facility] Creatinine 1.16 0.67 - 1.30 mg/dL 06/09/2025 11:53 AM EDT [facility] eGFR (CKD-EPIcr 2020) 69 >=60 mL/min/1.7 3 m2 06/09/2025 11:53 AM EDT [facility] Comment:Estimated GFR was ca lculated using the CKD-EPIcr (2020) equation refit without race. The equation is recommended by the National Kidney Foundation - [place] [employer] of Nephrology Task Force. Blood VENOUS BLOOD / Unknown Venipuncture / Unknown 06/09/2025 10:55 AM EDT 06/09/2025 10:55 AM EDT us Cristopher De La Garza MD CHEMISTRY ORDERABLES Final Resul t [facility], [facility] [address] [place] [address] * (ABNORMAL) HEPATIC FUNCTION PANEL (06/09/2025 10:55 AM EDT) Total Protein 6.2(L) 6.4 - 8.3 gm/dL 06/09/2025 11:53 AM EDT [facility] Albumin 4.0 3.2 - 4.6 gm/dL 06/09/2025 11:53 AM EDT [facility] Bili Direct 0.3 0.0 - 0.3 mg/dL 06/09/2025 11:53 AM EDT [facility] Bili Total 0.7 0.2 - 1.4 mg/dL 06/09/2025 11:53 AM EDT [facility] AST 24 <=40 U/L 06/09/2025 11:53 AM EDT [facility] ALT 26 <=41 U/L 06/09/2025 11:53 AM EDT [facility] Alk Phos 81 40 - 129 U/L 06/09/2025 11:53 AM EDT [facility] Blood VENOUS BLOOD / Unknown Venipuncture / Unknown 06/09/2025 10:55 AM EDT 06/09/2025 10:55 AM EDT us Cristopher De La Garza MD CHEMISTRY ORDERABLES Final Resul t [email or web address], [facility] [address], [place] [address] * LIPID SCREEN (06/09/2025 10:55 AM EDT) Cholesterol 127 <200 mg/dL 06/09/2025 11:53 AM EDT [facility] Comment: < 200 Desirable 200 - 239 Borderline High >= 240 High Triglyceride 59 <150 mg/dL 06/09/2025 11:53 AM EDT [facility] Comment: < 150 Normal 150 - 199 Borderline High 200 - 499 High >= 500 Very High HDL 56 >=40 mg/dL 06/09/2025 11:53 AM EDT [facility] Comment: > 60 Optimal 40 - 60 Acceptable < 40 Low LDL Calculated 58 <100 mg/dL 06/09/2025 11:53 AM EDT [facility] Comment: < 100 Optimal 100 - 129 Near or above optimal 130 - 159 Borderline High 160 - 189 High >= 190 Very High The National Institutes of Health (NIH) equation is used for all lipid panels that report calculated LDL (LDL-C). Non-HDL-C Calculated 71 <=129 mg/dL 06/09/2025 11:53 AM EDT [facility] Comment: <130 Desirable 130-159 Above Desirable 160-189 Borderline High 190-219 High >= 220 Very High Fasting Specimen? No None 025 11:53 AM EDT [facility] Blood VENOUS BLOOD / Unknown Venipuncture / Unknown 06/09/2025 10:55 AM EDT 06/09/2025 10:55 AM EDT Cristopher De La Garza MD CHEMISTRY ORDERABLES Final Resul t Performing Organization Address City/[facility]/ZIP Co de Phone Number [facility] [address] [facility] , [place] [address] * POCT EKG (06/09/2025 9:57 AM EDT) 06/09/2025 9:57 AM EDT Cristopher De La Garza MD POINT OF CARE CARDIOLOGY Final R esult [facility] OFFICE documented in this encounter Visit Diagnoses Diagnosis Coronary artery disease involving coronary bypass graft of [place] heart without angina pectoris- Primary Dyslipidemia Other and unspecified hyperlipidemia Hypertension, unspecified type S/P CABG x 5 Postsurgical aortocoronary bypass status CAD in [place] artery Coronary atherosclerosis of [place] coronary artery documented in this encounter Historical Medications * This list may reflect changes made after this encounter. irbesartan (AVAPRO) 300 mg Oral Tablet Take 300 mg by mouth nightly. added in this encounter Care Teams Seater Assembler Relationship Specialty Start Date End Date Jason Cornejo MD [address] [place] [id number] PCP - General Family Medicine 07/27/22 Cristopher De La Garza MD [address] [place] [address] Forest Pathology Associate Professor Internal Medicine-Interventional Cardiology 06/09/25 documented as of this encounter
--- OUTSIDE RECORDS SUMMARY | 2025-06-09 09:30 | XMS_ITS | Encounter Summary ---
Author Organization [place] [address] Care Team Providers Care Marketing Communications Coordinator Name Role Phone Jason Cornejo MD Primary Care Provider [phone] Cristopher De La Garza MD Unavailable Encounter Details Date Type Department Care Team (Latest Contact Info) Description 06/09/2025 10:30 AM EDT - 06/09/2025 11:59 PM EDT [facility] [place] [id number] 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 pectoris; Dyslipidemia; Hypertension, unspecified type; S/P CABG x 5; CAD in [place] artery Discharge Disposition: Home or Self Care Social History Tobacco Use Types Packs/Day Years Used Date Smoking Tobacco: Never Smokeless Tobacco: Never Alcohol Use Standard Drinks/Week Comments Not Currently 0 (1 standard drink = 0.6 oz pur e alcohol) Sexually Active Control Partners Comments Not Currently Sex and Gender Information Value Date Recorded Sex Assigned at Not on file Legal Sex Male 12:19 PM EDT Gender Identity Not on file Sexual Orientation Not on file documented as of this encounter Medications at Time of Discharge acetaminophen 325 mg Oral Tab Take 2 Tablets by mouth every 4 hours as needed for Pain. 09/12/2022 amLODIPine (NORVASC) 5 mg Oral Tablet Take 1 Tablet by mouth daily. 30 Tablet 11 06/09/2025 aspirin 81 mg Oral Tablet, Chewable TAKE 1 TABLET BY MOUTH DAILY. 90 Tablet 2 11/19/2024 atorvastatin (LIPITOR) 40 mg Oral Tablet TAKE 1 TABLET BY MOUTH NIGHTLY. 90 Tablet 1 10/31/2023 finasteride (PROSCAR) 5 mg Oral Tablet Take 5 mg by mouth daily. 11/18/2020 irbesartan (AVAPRO) 300 mg Oral Tablet Take 300 mg by mouth nightly. metoprolol tartrate 37.5 mg Oral Tablet Take 1 Tablet by mouth 2 times daily. 90 Tablet 09/12/2024 omeprazole (PRILOSEC) 20 mg Oral Capsule, Delayed Release(E.C.) Take 20 mg by mouth daily. 01/08/2021 tamsulosin (FLOMAX) 0.4 mg Oral Capsule Take 0.4 mg by mouth daily. 03/04/2022 traZODone (DESYREL) 50 mg Oral Tablet Take 100 mg by mouth nightly. 02/24/2022 documented as of this encounter Discharge Disposition Disposition Code Departure Means Destination Home or Self Care documented in this encounter Plan of Treatment Upcoming Encounters Date Type Department Care Team (Late st Contact Info) Description 06/10/2026 10:15 AM EDT Office Visit [facility] [address] [place] [address] Cristopher De La Garza MD [address] [place] [address] documented as of this encounter Procedures Procedure Name Priority Date/Time Associated Diagnosis Comments HEPATIC FUNCTION PANEL Routine 06/09/2025 10:55 AM EDT 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 pectoris Dyslipidemia Hypertension, unspecified type S/P CABG x 5 CAD in [place] artery LIPID SCREEN Routine 06/09/2025 10:55 AM EDT 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 pectoris Dyslipidemia Hypertension, unspecified type S/P CABG x 5 CAD in [place] artery BASIC METABOLIC PANEL Routine 06/09/2025 10:55 AM EDT 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 pectoris Dyslipidemia Hypertension, unspecified type S/P CABG x 5 CAD in [place] artery documented in this encounter Results * BASIC METABOLIC PANEL (06/09/2025 10:55 AM EDT) Sodium 137 136 - 145 mmol/L 06/09/2025 11:53 AM EDT [facility] Potassium 4.8 3.5 - 5.0 mmol/L 06/09/2025 11:53 AM EDT [facility] Chloride 104 98 - 107 mmol/L 06/09/2025 11:53 AM EDT [facility] Total CO2 24 22 - 29 mmol/L 06/09/2025 11:53 AM EDT [facility] Anion Gap 9 7 - 16 mmol/L 06/09/2025 11:53 AM EDT [facility] Calcium 8.8 8.8 - 10.4 mg/dL 06/09/2025 11:53 AM EDT [facility] Glucose Lvl 96 70 - 99 mg/dL 06/09/2025 11:53 AM EDT [facility] BUN 17 8 - 23 mg/dL 06/09/2025 11:53 AM EDT [facility] Creatinine 1.16 0.67 - 1.30 mg/dL 06/09/2025 11:53 AM EDT [facility] eGFR (CKD-EPIcr 2020) 69 >=60 mL/min/1.7 3 m2 06/09/2025 11:53 AM EDT [facility] Comment:Estimated GFR was ca lculated using the CKD-EPIcr (2020) equation refit without race. The equation is recommended by the National Kidney Foundation - [place] Society of Nephrology Task Force. Blood VENOUS BLOOD / Unknown Venipuncture / Unknown 06/09/2025 10:55 AM EDT 06/09/2025 10:55 AM EDT us Cristopher De La Garza MD CHEMISTRY ORDERABLES Final Resul t [facility], [facility] [address] [facility] , [place] [address] * (ABNORMAL) HEPATIC FUNCTION PANEL (06/09/2025 10:55 AM EDT) Total Protein 6.2(L) 6.4 - 8.3 gm/dL 06/09/2025 11:53 AM EDT [facility] Albumin 4.0 3.2 - 4.6 gm/dL 06/09/2025 11:53 AM EDT [facility] Bili Direct 0.3 0.0 - 0.3 mg/dL 06/09/2025 11:53 AM EDT [facility] Bili Total 0.7 0.2 - 1.4 mg/dL 06/09/2025 11:53 AM EDT [facility] AST 24 <=40 U/L 06/09/2025 11:53 AM EDT [facility] ALT 26 <=41 U/L 06/09/2025 11:53 AM EDT [facility] Alk Phos 81 40 - 129 U/L 06/09/2025 11:53 AM EDT [facility] Blood VENOUS BLOOD / Unknown Venipuncture / Unknown 06/09/2025 10:55 AM EDT 06/09/2025 10:55 AM EDT us Cristopher De La Garza MD CHEMISTRY ORDERABLES Final Resul t [facility] [address] [facility] , [address] [place] [id number] * LIPID SCREEN (06/09/2025 10:55 AM EDT) Cholesterol 127 <200 mg/dL 06/09/2025 11:53 AM EDT [facility] Comment: < 200 Desirable 200 - 239 Borderline High >= 240 High Triglyceride 59 <150 mg/dL 06/09/2025 11:53 AM EDT [facility] Comment: < 150 Normal 150 - 199 Borderline High 200 - 499 High >= 500 Very High HDL 56 >=40 mg/dL 06/09/2025 11:53 AM EDT [facility] Comment: > 60 Optimal 40 - 60 Acceptable < 40 Low LDL Calculated 58 <100 mg/dL 06/09/2025 11:53 AM EDT [facility] Comment: < 100 Optimal 100 - 129 Near or above optimal 130 - 159 Borderline High 160 - 189 High >= 190 Very High The National Institutes of Health (NIH) equation is used for all lipid panels that report calculated LDL (LDL-C). Non-HDL-C Calculated 71 <=129 mg/dL 06/09/2025 11:53 AM EDT [facility] Comment: <130 Desirable 130-159 Above Desirable 160-189 Borderline High 190-219 High >= 220 Very High Fasting Specimen? 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 pectoris Dyslipidemia Other and unspecified hyperlipidemia Hypertension, unspecified type S/P CABG x 5 Postsurgical aortocoronary bypass status CAD in [place] artery Coronary atherosclerosis of [place] coronary artery documented in this encounter Care Teams Marketing Communications Coordinator Relationship Specialty Start Date End Date Jason Cornejo MD [address] [place] [phone] PCP - General Family Medicine 07/27/22 Cristopher De La Garza MD [address] [facility] [place] [address] Construction Checker Internal Medicine-Interventional Cardiology 06/09/25 documented as of this encounter
--- OUTSIDE RECORDS SUMMARY | 2025-07-30 04:45 | XMS_ITS ---
Author Organization [facility] Address [address] [id number] Care Team Providers Care Resolution Specialist Name Role Phone Amenia, Jason Primary Care Provider Allergies No Known Allergies REASON FOR VISIT Numbness in right arm Medications Medication SIG (Take, Route, Frequency, Duration) Notes Start Date End Date Status Finasteride 5 MG 1 tablet Orally once daily; Duration: 90 days Active traZODone HCl 50 MG 2 tablets Orally Onc e a day at bedtime; Duration: 90 days Active Atorvastatin Calcium 40 MG 1 tablet Oral ly Once a day; Duration: 90 days Active Tamsulosin HCl 0.4 MG 1 cap(s) orally on ce a day; Duration: 90 days Active Gabapentin 300 MG 1 capsule Orally twi ce a day; Duration: 30 days 07/30/2025 Active Meloxicam 7.5 MG 1 tablet Orally Once a day; Duration: 90 days Active Aspirin 81 MG 1 tab(s) orally once a day Active Omeprazole 20 MG 1 cap(s) orally once a day; Duration: 90 days Active Irbesartan 300 MG 1 tablet Orally Once a day; Duration: 90 days 04/16/2025 Active Metoprolol Tartrate 37.5 MG 1 tab(s) ora lly 2 times a day; Duration: 90 days Active amLODIPine Besylate 5 MG 1 tablet Orally Once a day Active Problems Problem Type SNOMED Code ICD Code Onset Dates Problem Status W/U Status Risk Notes Problem Cervical radiculopathy (05749439) Cervical radiculopathy (M54.12) Active confirmed Problem Cervical disc disorder (223365220) DDD (degenerative disc disease), cervical (M50.30) Active confirmed Problem Cervical spinal stenosis (14639607) Cervical spinal stenosis (M48.02) Active confirmed Vital Signs Weight 195 lbs 07/30/2025 Blood pressure systolic 142 mm Hg 07/30/20 25 Blood pressure diastolic 90 mm Hg 025 Heart Rate 76 /min 07/30/2025 Height 69.25 in 07/30/2025 BMI 28.59 kg/m2 07/30/2025 Encounters Encounter Location Date Provider Diagnosis [facility] [address] [facility] [address] [place] [id number] 07/30/2025 Jason Cornejo Right hand weakness R29.898 ; Cervical radiculopathy M54.12 ; DDD (degenerative disc disease), cervical M50.30 and Cervical spinal stenosis M48.02 Assessments Encounter Date Diagnosis (ICD Code) Assessment Notes Treatment Notes Treatment Clinical Notes Section Notes 07/30/2025 Right hand weakness (ICD-10 - R29.898) 07/30/2025 Cervical radiculopathy (ICD-10 - M54.12) 07/30/2025 DDD (degenerative disc disease), cervical (ICD-10 - M50.30) 07/30/2025 Cervical spinal stenosis (ICD-10 - M48.02) Plan Of Treatment Medication Medication Name Sig Start Date Stop Date Notes Gabapentin 300 MG 1 capsule Orally twi ce a day; Duration: 30 days 07/30/2025 Pending Test Test Name Order Date MRI : Spine, Cervical, without contrast 07/30/2025 Next Appt Details Follow Up: via phone to repo rt test results, Reason: Provider Name:Jason Chiang ry, 10/17/2025 09:00:00 AM, [address] [facility] [address] [facility], [address], [place], [id number], Progress Notes * Vesna CARVER:1955 (69 yo M)Acc No.[id number]:07/30/2025 Progress Notes Patient: Alxe SIM Provider: Keila Cornejo M.D. :1955 A ge:69 Y S ex:Male Date:07/30/2025 Address:[address] [place] [address], [id number] Subjective: * Chief Complaints: * 1 . Numbness in right arm. * HPI: E lbow/Arm: 69 year old male presents with c/o tingling/ numbness P t complains of ache in rt tricep since before Thanksgiving. Pt states he has numbness in rt hand and pain in upper back as well. Pt states he noticed a knot in between his shoulder blades a couple weeks ago. * Medical History: C oronary Artery Disease, Dx 2022, Hypertension, Hyperlipidemia, Dyspepsia, Colon Polyps, BPH, Degenerative Disc Disease, Kdney Stones, Retinal detachment, left eye, 2017, Cardiolyte stress test normal February 2019, Sleep apnea, Cervical Disc Disease, Cervical spine osteoarthritis. * Surgical History: C olonoscopy (polyps) 08/2008, EGD (normal) 06/2009, Colonoscopy (polyps) 09/2013, LT Cataract Removal 04/2018, Retina and [place] tear repairs (multiple times) 07/2018, LT Eye Scleral Buckle 10/18/2018, Coronary Artery Bypass Graft x 5 Vessels 08/2022. * Hospitalization/Major Diagno stic Procedure: D olivia Past Hospitalization. * Family History: F ather: alive, hypertension, heart disease, Parkinsons. M other: alive. P aternal Grand Father: , heart disease. P aternal Grand Mother: , Parkinsons. M aternal Grand Father: , cancer, bladder. M aternal Grand Mother: . 1 son(s) , 1 daughter(s) - healthy. . * Social History: C URRENT TOBACCO USE: No S moking Status: Patient does NOT smoke. H ome smoke detector use: yes. Marital Status: . Past smoking status: no. * Medications: T aking amLODIPine Besylate 5 MG Tablet 1 tablet Orally Once a day , Taking Aspirin 81 MG Tablet Delayed Release 1 tab(s) orally once a day , Taking Meloxicam 7.5 MG Tablet 1 tablet Orally Once a day , Taking Irbesartan 300 MG Tablet 1 tablet Orally Once a day , Taking Omeprazole 20 MG Capsule Delayed Release 1 cap(s) orally once a day , Taking Metoprolol Tartrate 37.5 MG Tablet 1 tab(s) orally 2 times a day , Taking Finasteride 5 MG Tablet 1 tablet Orally once daily , Taking Atorvastatin Calcium 40 MG Tablet 1 tablet Orally Once a day , Taking traZODone HCl 50 MG Tablet 2 tablets Orally Once a day at bedtime , Taking Tamsulosin HCl 0.4 MG Capsule 1 cap(s) orally once a day , Medication List reviewed and reconciled with the patient * Allergies: N .K.D.A. Objective: * Vitals: W t: 195, Temp: 97.8, BP: 142/90, HR: 76, Nurse: kk, Ht: 69.25, BMI:28.59. * Examination: G eneral Examination: General Appearance: N AD. N eurology: Cortical functions: n ormal. C ranial nerves: I I-XII normal bilaterally. M otor strength: d ecreased card scraper strength in right hand. G ait:?normal. Assessment: * Assessment: 1. R ight hand weakness - R29.898 (Primary) 2 . C ervical radiculopathy - M54.12 3 . D DD (degenerative disc disease), cervical - M50.30 4 . C ervical spinal stenosis - M48.02 Plan: * Treatment: 2.?Cervical radiculopathy? Start Gabapentin Capsule, 300 MG, 1 capsule, Orally, twice a day, 30 days, 60 Capsule, Refills 0. ?Imaging: MRI : Spine, Cervical, without contrast* Priscila Dale 07/30/2025 10:33:58 AM EST > faxed to [facility] Scheduling 3.?DDD (degenerative disc disease), cervical?Imaging: MRI : Spine, Cervical, without contrast* Priscila Dale 07/30/2025 10:33:58 AM EST > faxed to [facility] Scheduling 4.?Cervical spinal stenosis?Imaging: MRI : Spine, Cervical, without contrast* Priscila Dale 07/30/2025 10:33:58 AM EST > faxed to [facility] Scheduling * Procedure Codes: G 2211 Complex e/m visit add on * Follow Up: v ia phone to report test results * Images: Billing Information: * Visit Code: 62470 Office Visit, Est Pt., Level 3. * Procedure Codes: G2211 Complex e/m visit add on. * Electronic signature of Tess Cornejo MD on 08/08/2025 at 08:45 AM EST Sign off status: Pending * Provider: Keila Cornejo M.D. Date: 09/30/2024 Generated for Saige salas/Broderick/Dessmitting on: 10/09/2024 08:45 AM EST History and Physical Notes * HPI (History of Present Illness) Category Sub-Category Detail Notes Category Not es Elbow/Arm tingling/ numbness Pt complains of ache in rt tricep since before Thanksgiving. Pt states he has numbness in rt hand and pain in upper back as well. Pt states he noticed a knot in between his shoulder blades a couple weeks ago Examination Category Sub-Category Detail Notes Category Not es General Examination General Appearance: NAD Neurology Cranial nerves: II-XII normal bilaterally Cortical functions: normal Gait: normal Motor strength: decreased card scraper stren gth in right hand
--- NOTE | 2025-08-08 08:42 | MR_ITS ---
FINAL REPORT CLINICAL HISTORY: radiating neck pain FINDINGS: Multi planar MR imaging was obtained of the cervical spine. There is abnormal decreased signal throughout the cervical discs. The vertebrae are of normal height. There is moderate disc space narrowing at C5-6 and C6-7. There is reversal of the cervical lordosis. There is no malalignment. The cervical cord demonstrates normal signal and configuration. C2-C3: There is no evidence of significant disc bulge or protrusion. There is no significant facet hypertrophy. C3-C4: There is no evidence of significant disc bulge or protrusion. There is no significant facet hypertrophy. C4-C5: Mild diffuse disc bulge with mild bilateral neuroforaminal narrowing. C5-C6: Moderate diffuse disc bulge and endplate hypertrophy. Moderate spinal and moderate left neuroforaminal narrowing. C6-C7: Moderate diffuse disc bulge and endplate hypertrophy. Moderate to high-grade bilateral neuroforaminal narrowing. C7-T1: Moderate diffuse disc bulge. Moderate to high-grade right and moderate left neuroforaminal narrowing. IMPRESSION: Multilevel degenerative disc disease with neuroforaminal compromise, most evident on the right at C7-T1. Reviewed, Interpreted and Dictated by Fritz Whelan MD Transcribed by Elizabeth Manuel Authenticated and [facility]
--- OUTSIDE RECORDS SUMMARY | 2025-08-08 08:44 | XMS_ITS | Data Portability ---
Author Organization [facility] Address [address] [place] [address] Care Team Providers Care Care Associate Name Role Phone PIOTR LILLY Neurologist DINESH SCHULTZ Referring Provider [phone] Assessment Encounter Date Assessment Date Assessment LastModified by Organization Details LastModified Time 10/28/2019 10/28/2019 Mr. Carver likel y has a right C7/T1 radiculopathy. His MRI shows neural foraminal stenosis on the right at C5-6, C6-7 and C7-T1. At this point, I would like to start him on a Medrol Dosepak and get him into some physical therapy with cervical traction. I think he will do well from this and avoid surgery. In the unlikely event that he continues to have pain we will go ahead and schedule follow-up for 6 weeks with nerve studies. He understands to cancel those if he is doing well. He is comfortable with this plan. He is welcome to call at any time with questions or concerns. Not available 10/28/2019 11:39:31 01/09/2020 01/09/2020 Mr. Carver is a 64-year-old gentleman with right upper extremity radiculopathy. We discussed an anterior cervical fusion, versus minimally invasive foraminotomies performed posteriorly. Ultimately, nothing needs to be done if he is tolerating the current degree of pain, which she seems to be. He is pleased to hear this. I will review his MRI once he sends it to me and reach back out to him to discuss the options (i.e. anterior versus posterior). Not available 01/09/2020 12:37:52 Plan of Treatment Reminders Order Date Submit Date Provider Last Modified By Organization Details Last Modified Time Details Appointments None record ed. Lab None record ed. Referral None record ed. Procedures None record ed. Surgeries None record ed. Imaging None record ed. Medication Orders None record ed. Patient TargetsNo targets recorded. Patient InstructionsNo instructions recorded. Reason for Referral None Reported. Results Created Date Observation Date Name Description Value Unit Range Abnormal Flag Note LastModifiedBy Organization Detail LastModifiedTime 10/14/1909/24/2019 XR, cervi denton spine , 4 or 5 view No observ ation record ed. BARCODE Not Available 2019 16:33:10 10/14/19 20 10/02/2019 MRI, lumba r spine , w/o contr ast No observ ation record ed. BARCODE Not Available 2019 16:33:10 01/09/20 20 01/09/2020 elect romyo gram + nerve condu ction study No observ ation record ed. [email or web address] Not Available 2019 08:07:50 Result Notes None recorded. Procedures Surgical History Date Name Laterality Status Provider Name and Address Organization Details Recorded Time 01/09/20 Electromyography (EMG) with Nerve Conduction Study (NCV) completed PIOTR LILLY MD [address] [place] [address], [id number], [facility] 01/09/2020 10:15:22 vasectomy completed Jyoti Garcia [facility] 10/28/2019 10:28:12 Imaging Results None recorded. Procedure Notes None recorded. Medical Equipment None Reported. Allergies No known drug allergies Medications Name Sig Start Date Stop Date Status Note LastModified by Organization Details LastModified Time enalapril maleate 10 mg tablet 10/27 completed Not Available Not Available Not Available trazodone 50 mg tablet active Not Available Not Available Not Available lisinopril 20 mg-hydrochl orothiazide 12.5 mg tablet active Not Available Not Available Not Available pravastatin 40 mg tablet active Not Available Not Available Not Available ranitidine 300 mg tablet 10/27 completed Not Available Not Available Not Available meloxicam 15 mg tablet 10/27 completed Not Available Not Available Not Available oxycodone-a cetaminophe n 5 mg-325 mg tablet 10/27 completed Not Available Not Available Not Available prednisolon e acetate 1 % eye drops,suspe nsion 10/27 completed Not Available Not Available Not Available tamsulosin 0.4 mg capsule active Not Available Not Available Not Available ranitidine 300 mg capsule active Not Available Not Available Not Available promethazin e 25 mg tablet 10/27 completed Not Available Not Available Not Available polymyxin B sulfate 10,000 unit-trimet hoprim 1 mg/mL eye drops active Not Available Not Available Not Available omeprazole 20 mg capsule,del ayed release active Not Available Not Available Not Available methylpredn isolone 4 mg tablets in a dose pack as directed active Not Available Not Available No t Available atropine 1 % eye drops active Not Available Not Available Not Available finasteride 5 mg tablet active Not Available Not Available Not Available Shingrix (PF) 50 mcg/0.5 mL intramuscul ar suspension, kit active Not Available Not Available Not Available Fluzone Quad (PF) 60 mcg (15 mcg x 4)/0.5 mL IM syringe active Not Available Not Available N ot Available Vitals Date Recorded Body height Body mass index (BMI) Body weight Systolic And Diastolic Provider Name and Address Organization Details Last Updated DateTime 10/28/2019 175.26 cm 26.6 kg/m2 52051.63 g 120/80 mm[Hg] [facility] 10/28/2019 10:31:04 Date Recorded Body height Provider Name an d Address Organization Details Last Updated DateTime 01/09/2020 175.26 cm [facility] 01/09/2020 11:56:21 Social History None recorded. Functional Status None recorded. Mental Status None recorded. Family History Relationship Description Onset Age of this Age Resolved Age Notes LastModified by Organization Details LastModified Time Unspecified Relation Hypertensive disorder [email or web address] Not available 10/27 10:28:01 Medical History Condition Response High Cholesterol Y Hypertension Y Past Encounters Encounter ID Performer Location Encounter Start Date Encounter Closed Date Diagnosis/Indication Diagnosis SNOMED-CT Code Diagnosis ICD10 Code Diagnosis IMO Codes Diagnosis Note [id number] DINESH SCHULTZ MD [facility] [address] [place] [address] 10/28/2019 09:51:56 10/28/2019 13:30:28 Cervical radiculopathy 74739553 M54.12 [id number] PIOTR LILLY MD NEUROLOGY [facility] [address] [place] [address] 01/09/2020 07:50:14 01/09/2020 08:50:34 Ulnar neuropathy of right arm [id number] 95627 G56.21 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 9260547208 38968 G56.01 [id number] DINESH SCHULTZ MD [facility] [address] [place] [address] 01/09/2020 11:11:37 01/10/2020 14:51:44 Cervical radiculopathy 28932745 M54.12 Time spent reviewing images, discussing the diagnosis and coordinati ng care: 15min Health Concerns Section Related Observation LastModified by Organization Detai ls LastModified Time None Recorded Concern Status LastModified by Organization Details LastModified Time None Recorded Advance Directives Directive None Recorded Payers Insurance Date Sequence Insurance Name Policy Number Policy Cannon Covered Member ID Cannon Member ID Guarantor Name 01/06/2020 1 [employer] - FEP [id number] Tarun Carver [id number] Alex Carver Notes Date Note Type Note Provider Name and Address Organization Details Recorded Time 10/28/2019 text/html Mr. Carver is a 64-year-old gentleman complaining of right-sided neck, shoulder and arm pain, along with some numbness and tingling. He denies any inciting event. The pain has been present for 2 months. He describes 5 out of 10 pain which is aching and intermittent. He gets some relief from recumbency. The pain is worse with any work above his head. He describes numbness and tingling. He has not done any conservative management at this time. DINESH SCHULTZ MD [address] [place] [address], [phone], [facility] 10/28/2019 11:39:42 01/09/2020 text/html ROS as noted in the HPI Mr. Carver is a 64-year-old gentleman complaining of right upper extremity radiculopathy. Unfortunately, he forgot to bring his MRI today, but did get his EMG/nerve conduction study with Dr. Lilly this morning. He presents today to discuss those results. He trialed physical therapy and it exacerbated his symptoms. DINESH SCHULTZ MD [address] [place], [address], [facility] 01/09/2020 12:38:16
--- OUTSIDE RECORDS SUMMARY | 2025-08-08 08:44 | XMS_ITS | Clinical Summary ---
Author Organization [facility] Address [address] [place] [address] Care Team Providers Care Industrial Cafeteria Manager Name Role Phone Jsaon Cornejo MD Primary Care Provider + [phone] Allergies No known active allergies Medications finasteride (Proscar) 5 MG tablet 11/18/2020 Active lisinopril-hydroCH LOROthiazide 20-12.5 MG tablet 11/19/2020 A ctive omeprazole (PriLOSEC) [address] capsule 01/08/2021 Active pravastatin (Pravachol) 40 MG tablet 01/08/2021 Active tamsulosin (Flomax) 0.4 MG 24 hr capsule 12/08/2020 Active Active Problems Problem Noted Date Diagnosed Date 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), right Corneal scar, 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 History of retinal detachment 01/29/2021 Resolved Problems Problem Noted Date Diagnosed Date Resolved Date Status post YAG capsulotomy of left eye 01/29/2021 05/11/2025 Family History Medical History Relation Name Comments Conversions - Other Father H/O hear t surgery Arthritis Mother Parkinsonism Other Relation Name Status Comments Father Mother Other Social History Tobacco Use Types Packs/Day Years Used Date Smoking Tobacco: Never Alcohol Use Standard Drinks/Week Comments No 0 (1 standard drink = 0.6 oz pur e alcohol) Sex and Gender Information Value Date Recorded Sex Assigned at Not on file Legal Sex Male 8:22 PM EDT Gender Identity Not on file Sexual Orientation Not on file Last Filed Vital Signs Vital Sign Reading Time Taken Comments Blood Pressure 152/81 10/14/2021 3:06 PM EST Pulse 92 10/14/2021 3:06 PM EST Temperature 36.4 C (97.5 F) 10/14/2021 3:06 PM EST Respiratory Rate - - Oxygen Saturation 97% 10/14/2021 3:06 PM EST Inhaled Oxygen Concentration - - Weight 81.9 kg (180 lb 9.6 oz) 10/14/2021 3:06 P M EST Height 175.3 cm (5' 9 ) 10/14/2021 3:06 PM EST Body Mass Index 26.67 10/14/2021 3:06 PM EST Plan of Treatment Health Maintenance Due Date Last Done Comments Dental Oral Exam 1955 Dental Prophylaxis 1955 Dental X-Ray: Bitewings 1955 Dental X-Ray: Full Mouth 1955 [facility]-Depression Screening 1955 [facility]-/Child/Adol SDOH Screenings 1955 [facility]- SDOH Screenings 10/21/1975 [facility]-Adult SDOH Screenings 10/21/1975 [facility]-DTaP,Tdap,and Td Vaccine s (1 - Tdap) 1976 CT Colonography 2002 Colonoscopy 2002 FIT-DNA 2002 FIT 2002 FOBT 2002 Sigmoidoscopy 2002 [facility]-Colorectal Cancer Screening 2002 [facility]-Pneumococcal Vaccine: 50 + Years (1 of 1 - PCV) 10/21/2007 [facility]-Zoster Vaccines (1 of 2) 10/21/2007 [id number] Vaccine (2 - 2024- season) 2025 10/27/2020 [facility]-Influenza Vaccine (#1) 04/21/202509/16, 09/01/2017 [facility]-RSV Vaccine: 60+ Years o r (1 - 1-dose 75+ series) 2032 HPV Vaccines (No Doses Required) Completed [facility]-HIB Vaccines Aged Out No longer e ligible based on patient's age to complete this topic [facility]-Hepatitis A Vaccines Aged Out No longer eligible based on patient's age to complete this topic [facility]-IPV Vaccines Aged Out No longer e ligible based on patient's age to complete this topic [facility]-Rotavirus Vaccines Aged Out No lo nger eligible based on patient's age to complete this topic Insurance Care Teams Industrial Cafeteria Manager Relationship Specialty Start Date End Date Jason Cornejo MD [address] [place] [address] PCP - General 01/01/21
--- OUTSIDE RECORDS SUMMARY | 2025-08-08 08:45 | XMS_ITS | Encounter Summary ---
Author Organization Healthcare Address [address] [place] [address] Care Team Providers Care Bandsaw Operator Name Role Phone Jason Cornejo MD Primary Care Provider + [phone] Encounter Details Date Type Department Care Team (Late st Contact Info) Description 11/08/[address] [facility] Room [address] [place] [address] Dental, Provider, DDS [address] [place], [place] [id number] Social History Tobacco Use Types Packs/Day Years Used Date Smoking Tobacco: Never Alcohol Use Standard Drinks/Week Comments No 0 (1 standard drink = 0.6 oz pur e alcohol) Sex and Gender Information Value Date Recorded Sex Assigned at Not on file Legal Sex Male 8:22 PM EDT Gender Identity Not on file Sexual Orientation Not on file COVID-19 Exposure Response Date Recorded In the last month, have you been in contact with someone who was confirmed or suspected to have Coronavirus / COVID-19? No / Unsure 10/14/2021 3:03 PM EST documented as of this encounter Plan of Treatment Not on file documented as of this encounter Visit Diagnoses Not on filedocumented in this encounter Additional Health Concerns Assessment Noted Time A fall risk assessment has been complete d for the patient 02/01/2021 10:37 AM EDT documented as of this encounter Care Teams Bandsaw Operator Relationship Specialty Start Date End Date Jason Cornejo MD [address] [facility] [address] [place] [phone] PCP - General 01/01/21 documented as of this encounter
--- OUTSIDE RECORDS SUMMARY | 2025-08-08 08:45 | XMS_ITS | Encounter Summary ---
Author Organization [employer] ([place], [place], [place], [place], [place]) Address [address] [place] [address] Care Team Providers Care Special Forces Engineer Sergeant Name Role Phone Unavailable Primary Care Provider Unavailabl e Encounter Details Date Type Department Care Team (Late st Contact Info) Description 10/18/2018 Transcribed Document [facility] [place] [facility] [address] [place] [address] ProviderWilliam MD [address] [place] [address] Social History Tobacco Use Types Packs/Day Years Used Date Smoking Tobacco: Never Assessed Sex and Gender Information Value Date Recorded Sex Assigned at Male 02/15/2022 8:28 PM CDT Legal Sex Male 8:28 PM CDT Gender Identity Male 02/15/2022 8:28 PM CDT Sexual Orientation Not on file documented as of this encounter Miscellaneous Notes * Cerner Conversion Note - William ProviderMD - 10/18/2018 12:00 PM ADJUNCT PSYCHOLOGY INSTRUCTOR JUNG Main OR PostOp Summary Primary Physician: LATESHA HAGEN MD-OPT Finalized Date/Time: 10/18/18 15:58:55 Pt. Name: ALEX GUEVARA /Sex: 1955 Male Med Rec #: [id number] Physician: LATESHA HAGEN MD-OPT Financial #: [id number] Pt. Type: O Room/Bed: EAS/ Admit/Disch: 10/18/18 09:34:00 - Institution: [facility] [place] PostOp Case Times Entry 1 In PACU II 10/18/18 14:33:00 Ready for PACU II 10/18/18 15:55:00 Discharge Discharge from PACU 10/18/18 15:55:00 II Last Modified By: Rosibel Rosa Rn 10/18/18 15:58:52 [facility] Main OR PostOp Case Times Audit 10/18/18 15:58:52 Concrete Mason: MARKO Modifier: MARKO <+> 1 Ready for PACU II Discharge <+> 1 Discharge from PACU II Finalized By: Rosibel Rosa, Rn Document Signatures Signed By: Rosibel Rosa Rn 10/18/18 15:58 documented in this encounter Plan of Treatment Not on file documented as of this encounter Visit Diagnoses Not on filedocumented in this encounter
--- OUTSIDE RECORDS SUMMARY | 2025-08-08 08:45 | XMS_ITS | Encounter Summary ---
Author Organization [employer] ([place], [place], [place], [place]) Address [address] [place] [address] Care Team Providers Care Hat Body Inspector Name Role Phone Unavailable Primary Care Provider Unavailabl e Encounter Details Date Type Department Care Team (Late st Contact Info) Description 10/18/2018 Transcribed Document [facility] [place] Family Medicine [address] [place] [address] ProviderWilliam MD [address] [place] [address] Social History Tobacco Use Types Packs/Day Years Used Date Smoking Tobacco: Never Assessed Sex and Gender Information Value Date Recorded Sex Assigned at Male 02/15/2022 8:28 PM CDT Legal Sex Male 8:28 PM CDT Gender Identity Male 02/15/2022 8:28 PM CDT Sexual Orientation Not on file documented as of this encounter Miscellaneous Notes * Cerner Conversion Note - Historical ProviderMD - 10/18/2018 2:56 PM RAILROAD DINING CAR STEWARDESS Event Note Entered On: 10/18/2018 14:57 EST Performed On: 10/18/2018 14:56 EST by Estefania Calderon RN Event Note Event Date/Time : 10/18/2018 14:56 EST Description of Event : dr matthews notified the diamox was not given before the patient went to the OR. Asked if she wanted it given postoperatively and she said no. Estefania Calderon, RN - 10/18/2018 14:56 EST documented in this encounter Plan of Treatment Not on file documented as of this encounter Visit Diagnoses Not on filedocumented in this encounter
--- OUTSIDE RECORDS SUMMARY | 2025-08-08 08:45 | XMS_ITS | Encounter Summary ---
Author Organization [employer] ([place], [place], [place], [place], [place]) Address [address] [place] [address] Care Team Providers Care Architectural Design Lecturer Name Role Phone Unavailable Primary Care Provider Unavailabl e Encounter Details Date Type Department Care Team (Late st Contact Info) Description 10/18/2018 Transcribed Document [facility] [place] Family Medicine [facility] [place] [address] ProviderWilliam MD [address] [place] [address] Social History Tobacco Use Types [...] Conversion Note - William ProviderMD - 10/18/2018 4:31 PM STARTER MECHANIC DATE OF PROCEDURE: 10/18/2018 SURGEON: Zakiya Gutierrez MD STOCK PATCHER: None. PREOPERATIVE DIAGNOSIS(ES): Retinal detachment, left eye. POSTOPERATIVE DIAGNOSIS(ES): Retinal detachment, left eye. PROCEDURE: Scleral buckle. ANESTHESIA: General anesthesia. INDICATIONS FOR THE SURGERY: Mr. Carver has a history of retinal tear and localized detachment. He continues to have traction on the tear with increasing amounts of subretinal fluid and the fluid is breaking through the retinal barricade. I have discussed with the patient his diagnosis, prognosis, risks, benefits, and alternatives to surgery. He voiced his understanding, had an opportunity to ask questions, and wished to proceed. DESCRIPTION OF PROCEDURE: He presents to the operating room under the care of the anesthesiologist and general anesthesia was administered. The left eye was prepped and draped in usual sterile fashion for ophthalmic surgery and a lid speculum was placed between the lids of the left eye. A 360 degree conjunctival peritomy was performed at the limbus and Huffman tenotomy scissors were used to bluntly dissect in each of the four oblique quadrants. Each of the four rectus muscles was hooked with Yury muscle hook and tagged with a 2-0 silk suture. The indirect ophthalmoscope was used to visualize the peripheral retina. The demarcation of the retinal detachment was marked on the sclera using a sterile marking pen. The superotemporal tear was marked on the sclera. There was a separate superior satellite tear that was marked and an inferonasal tear that was also marked. Cryotherapy was applied to each of the areas of pathology. Then, the 5-0 nylon sutures were pre-placed in preparation for the scleral buckle. The anterior suture was placed at the posterior insertion of the rectus muscle and the posterior suture was placed 9 mm posteriorly. Two sutures bisected the superotemporal quadrant. Then, the 286 was passed underneath the two superotemporal sutures and under the lateral rectus muscles. The 240 encircled the eye and the sleeve was placed inferonasally. The 240 was secured at the equator using a single 5-0 nylon suture in each of the remaining three quadrants, inferotemporal, inferonasal, and superonasal. The ends of the 240 were tightened and trimmed and the 286 was temporarily secured to the eye to achieve a nice buckle effect. Intra-ocular pressure was lowered by given the patient 250 mL of IV mannitol 20% over 20 minutes. He received 500 mg of IV Diamox in the preop area. Intraocular pressure was palpated and was thought to be about 20-30. The indirect ophthalmoscope was used to see that the tear was well supported on the buckle and most of the subretinal fluid was also supported on the buckle. The intraocular pressure was less than diastolic as confirmed by evaluating the optic nerve. Pressing on the eye and ensuring that pulsation could be induced to the optic nerve. No drain was completed and a gas bubble was placed. The 286 was permanently secured to the eye with pre-placed sutures. Additional retrobulbar block was bluntly infiltrated inferonasally. The retrobulbar block consisted of 4 mL of Marcaine 0.5%, 4 mL of lidocaine 2% without epinephrine, and 1 mL of Wydase. He received about 4 mL of this mixture initially once the peritomy had been performed and then at the end of procedure in the same quadrant to achieve postoperative analgesia. The tenon tissue was closed to the lateral and medial rectus muscles using 7-0 Vicryl and the conjunctiva was closed with multiple collagen sutures in an interrupted fashion. A subconjunctival injection of Ancef 50 mg and Solu-Medrol 20 mg was given into the inferior subconjunctival space under direct visualization of the needle. Atropine 1% drops and Gentak ophthalmic ointment was placed into the eye. A patch and shield was placed over the eye, and the patient was taken to the recovery room in good condition. Prior to placing the patch and shield, I did check the pressure with a Anuel-Pen and the pressure was 22. Zakiya Gutierrez M.D. Dict: 10/18/2018 16:31:59 Trans: 10/18/2018 20:04:23 CC1: Zakiya Gutierrez M.D. Electronically signed by [facility] Conversion Entry Level Accounting Clerk Cerner at 12/09/2022 6:01 PM CDT documented in this encounter Plan of Treatment Not on file documented as of this encounter Visit Diagnoses Not on filedocumented in this encounter
--- OUTSIDE RECORDS SUMMARY | 2025-08-08 08:45 | XMS_ITS | Clinical Summary ---
Author Organization [employer] ([place], [place], [place], [place], [place]) Address [address] [place] [address] Care Team Providers Care Retail Receiving Clerk Name Role Phone Unavailable Primary Care Provider Unavailabl e Social History Tobacco Use Types Packs/Day Years Used Date Smoking Tobacco: Never Assessed Sex and Gender Information Value Date Recorded Sex Assigned at Male 02/15/2022 8:28 PM CDT Legal Sex Male 8:28 PM CDT Gender Identity Male 02/15/2022 8:28 PM CDT Sexual Orientation Not on file Plan of Treatment Not on file
--- OUTSIDE RECORDS SUMMARY | 2025-08-08 08:45 | XMS_ITS | Encounter Summary ---
Author Organization [email or web address] ([place], [place], [place], [place]) Address [address] [place] [address] Care Team Providers Care Manager Bar Name Role Phone Unavailable Primary Care Provider Unavailabl e Encounter Details Date Type Department Care Team (Late st Contact Info) Description 10/18/2018 Transcribed Document [facility] [place] Medicine [address] [place] [address] ProviderWilliam MD [address] [place] [address] Social History Tobacco Use Types [...] - William ProviderMD - 10/18/2018 12:00 PM FLIGHT PARAMEDIC E Main OR PreOp Summary Primary Physician: LATESHA HAGEN MD-OPT Finalized Date/Time: 10/18/18 16:40:57 Pt. Name: ALEX CARVER /Sex: 1955 Male Med Rec #: [id number] Physician: LATESHA HAGEN MD-OPT Financial #: [id number] Pt. Type: O Room/Bed: EAS/ Admit/Disch: 10/18/18 09:34:00 - 10/18/18 15:55:00 Institution: [facility] [place] PreOp Case Times Entry 1 In Preop 10/18/18 09:40:00 Ready for Holding n/a Room Patient Ready for 10/18/18 10:59:00 Surgery Patient Out of Preop 10/18/18 11:35:00 Patient Out of n/a Holding Room Last Modified By: Evie Carroll, ISW-OD-SSEA-OP CAR 10/18/18 16:40:52 JUNG PreOp Case Times Audit 10/18/18 16:40:52 Youth Worker: [id number] Modifier: [id number] <+> 1 Patient Out of Preop Finalized By: Evie Carroll, [id number]-OP CAR Document Signatures Signed By: Evie Carroll, [id number]-OP CAR 10/18/18 16:40 documented in this encounter Plan of Treatment Not on file documented as of this encounter Visit Diagnoses Not on filedocumented in this encounter
--- OUTSIDE RECORDS SUMMARY | 2025-08-08 08:45 | XMS_ITS | Encounter Summary ---
Author Organization [employer] ([place], [place], [place], [place], [place]) Address [address] [place] [address] Care Team Providers Care Kitchen Stewardess Name Role Phone Unavailable Primary Care Provider Unavailabl e Encounter Details Date Type Department Care Team (Late st Contact Info) Description 10/18/2018 Transcribed Document [facility] Family Medicine [address] [place] [address] ProviderWilliam MD [address] [place] [address] Social History Tobacco Use Types [...] - William ProviderMD - 10/18/2018 12:00 PM SOFTWARE DESIGNER [facility] Main OR PACU Summary Primary Physician: LATESHA HAGEN MD-OPT Finalized Date/Time: 10/22/18 07:06:00 Pt. Name: ALEX CARVER /Sex: 1955 Male Med Rec #: [id number] Physician: LATESHA HAGEN MD-OPT Financial #: [id number] Pt. Type: O Room/Bed: EAS/ Admit/Disch: 10/18/18 09:34:00 - 10/18/18 15:55:00 Institution: [facility] [place] Main [place] PACU Case Times Entry 1 In PACU I 10/18/18 13:45:00 Ready for PACU 10/18/18 14:25:00 Discharge Discharge from PACU 10/18/18 14:25:00 I Last Modified By: Eduard Armijo Rn 10/18/18 14:53:17 [facility] Main OR PACU Acuity Entry 1 Start Time 10/18/18 14:26:00 Stop Time 10/18/18 14:30:00 Acuity Level [facility] PACU Acuity I Last Modified By: Eduard Armijo Rn 10/18/18 14:53:33 Finalized By: Juliana Floyd RN Document Signatures Signed By: Eduard Armijo Rn 10/18/18 14:53 Juliana Floyd RN 10/22/18 07:06 Unfinalized History Date/Time Username Reason for Unfinalizing Freetext Reason for Unfinalizing 10/22/18 07:05 RAJ Chart Audit documented in this encounter Plan of Treatment Not on file documented as of this encounter Visit Diagnoses Not on filedocumented in this encounter
--- OUTSIDE RECORDS SUMMARY | 2025-08-08 08:45 | XMS_ITS | Encounter Summary ---
Author Organization [employer] ([place], [place], [place], [place], [place]) Address [address] [place] [address] Care Team Providers Care Talent Acquisition Coordinator Name Role Phone Unavailable Primary Care Provider Unavailabl e Encounter Details Date Type Department Care Team (Late st Contact Info) Description 10/18/2018 Transcribed Document [facility] [place] [address] [place] [address] ProviderWilliam MD [address] [place] [address] Social History Tobacco Use Types [...] Conversion Note - Historical ProviderMD - 10/18/2018 9:58 AM PRACTICE ASSISTANT Pediatric Growth Entered On: 10/18/2018 9:58 EST Performed On: 10/18/2018 9:58 EST by Iesha Lucia Chief Executive Officer-Health Unit Coord Height and Weight, Clinical Dosing Weight Source : Standing scale Weight Entry Format : Morgan Clinical Dosing Weight : 78.64 kg Weight, Pounds : 173 lb Iesha Lucia Chief Executive Officer-Health Unit Coord - 10/18/2018 9:58 EST documented in this encounter Plan of Treatment Not on file documented as of this encounter Visit Diagnoses Not on filedocumented in this encounter
--- OUTSIDE RECORDS SUMMARY | 2025-08-08 08:45 | XMS_ITS | Encounter Summary ---
Author Organization [employer] ([place], [place], [place], [place], [place]) Address [address] [place] [address] Care Team Providers Care Bow Maker Name Role Phone Unavailable Primary Care Provider Unavailabl e Encounter Details Date Type Department Care Team (Late st Contact Info) Description 10/18/2018 Transcribed Document [facility] [place] [address] [place] [address] ProviderWilliam MD [address] [place] [address] Social History Tobacco Use Types [...] Conversion Note - Historical ProviderMD - 10/18/2018 10:[address] POLICE OFFICER Pre Procedure Adult Entered On: 10/18/2018 10:19 EST Performed On: 10/18/2018 10:13 EST by Eduard Armijo Rn Height and Weight, Clinical Dosing Height Source : Stated Height Entry Format : [place] Height, Feet : 5 ft(Converted to: 152 cm, 60 Inch) Height, Inches : 9 Inch(Converted to: 0 ft 9 Inch, 22.86 cm) Clinical Height : 175.26 cm Weight Source : Standing scale Weight Entry Format : Moosic Clinical Dosing Weight : 78.64 kg Weight, Pounds : 173 lb Body Surface Area (BSA) : 1.94 m2 Body Mass Index : 25.6 kg/m2 (HI) [place] Body Weight : 70 kg Eduard Armijo Rn - 10/18/2018 10:13 EST Health Histories Smoking Status : Never (less than 100 in lifetime; none in last 30 days) Smokeless Tobacco Status : Never Eduard Armijo Rn - 10/18/2018 10:13 EST Social History (As Of: 10/18/2018 10:19:15 EST) Infectious Disease History Infectious Disease History : Chicken pox/Shingles, Influenza, Measles Fever/Chills Last 48 Hours : No Travel To Regions with Travel Advisories : No Travel Outside [place] Within Last 30 Days : No Contact With Traveler to Advisory Region : No Tuberculosis Symptoms : None Eduard Armijo Rn - 10/18/2018 10:13 EST Anesthesia/Transfusion History Family History of Anesthesia Reaction : No prior transfusion(s) Transfusion History : Prior anesthesia without reaction Family History of Anesthesia Reaction : None Eduard Armijo Rn - 10/18/2018 10:13 EST Functional Assessment Living Situation : Home Patient Lives With : Spouse Mobility Assistance Prior to Admission : Independent Current Home Treatments : None Eduard Armijo Rn - 10/18/2018 10:13 EST Psychosocial History Currently in Unsafe Situation : No Tried to Harm Yourself in the Past? : No Thoughts of Harming/Killing Yourself : No Eduard Armijo Rn - 10/18/2018 10:13 EST Advance Directive Patient has Advance Directive *Q : No, patient refuses Advance Directive information Eduard Armijo Rn - 10/18/2018 10:13 EST General Info Want Family/Rep/Phys Notified of Admit : No Emergency Contact #1 : Tarun Carver Emergency Contact #1 Emergency Contact #1 Relationship : Emergency Contact #2 : . Emergency Contact #2 Phone Number : . Emergency Contact #2 Relationship : . Primary Language : Palauan Communication Barrier : None Eduard Armijo Rn - 10/18/2018 10:13 EST Sleep Apnea Risk Assmt Hx of Obstructive Sleep Apnea Diagnosis : No Snore Loudly : No Tired, Fatigued, or Sleepy During Day : No Observed Stopping Breathing During Sleep : No Have/Are Being Treated for Hypertension : Yes STOP Sleep Apnea Risk Level Score : 1 STOP Sleep Apnea Risk Level : Low BMI Greater Than 35 kg/m2 : No Age over 50 Years Old : Yes Gender Male : Yes Neck Circumference Measured (cms) : 35 cm STOP-BANG Sleep Apnea Risk Level Score : 2 Neck Circumference Greater Than 40 cm : No Eduard Armijo Rn - 10/18/2018 10:13 EST Jesus Scale Jesus Sensory Perception : No impairment Jesus Moisture : Rarely moist Jesus Activity : Walks frequently Jesus Mobility : No limitation Jesus Nutrition : Excellent Jesus Friction and Shear : No apparent problem Jesus Score : 23 Eduard Armijo Rn - 10/18/2018 10:13 EST Fall Risk Scales ABCs Fall Injury Risk Identification : None PRADHAN Hx Falls Immediate/Within 3 Months : No Pradhan Secondary Diagnosis : No PRADHAN Use of Ambulatory Aid : None PRADHAN IV Therapy or IV Access : Yes Pradhan Gait/Transferring : Normal, bedrest, immobile Pradhan Mental Status : Oriented to own ability Pradhan Fall Risk Score : 20 PRADHAN Fall Scale Risk Level : 0-24 Low Risk [place] Fall Interventions : Adequate lighting, Call device within reach, Non-slip footwear, Room free of clutter/spills, Upper side-rails up, Wheels locked Eduard Armijo Rn - 10/18/2018 10:13 EST Valuables and Belongings Valuables and Belongings : Clothing, Jewelry Clothing : Common streetwear Clothing Disposition : With family Jewelry : Ring Jewelry Disposition : With family Eduard Armijo Rn - 10/18/2018 10:13 EST documented in this encounter Plan of Treatment Not on file documented as of this encounter Visit Diagnoses Not on filedocumented in this encounter
--- OUTSIDE RECORDS SUMMARY | 2025-08-08 08:45 | XMS_ITS | Clinical Summary ---
Author Organization [facility] Address [address] [place] [address] Phone Care Team Providers Care Electrician Marine Name Role Phone Jason Cornejo MD Primary Care Provider + [phone] Cristopher De La Garza MD Unavailable Allergies No known active allergies Medications finasteride (PROSCAR) 5 mg Oral Tablet Take 5 mg by mouth daily. 11/18/2020 Active omeprazole (PRILOSEC) 20 mg Oral Capsule, Delayed Release(E.C.) Take 20 mg by mouth daily. 01/08/2021 Active tamsulosin (FLOMAX) 0.4 mg Oral Capsule Take 0.4 mg by mouth daily. 03/04/2022 Active traZODone (DESYREL) 50 mg Oral Tablet Take 100 mg by mouth nightly. 02/24/2022 Active acetaminophen 325 mg Oral Tab Take 2 Tablets by mouth every 4 hours as needed for Pain. 09/12/2022 Active atorvastatin (LIPITOR) 40 mg Oral Tablet TAKE 1 TABLET BY MOUTH NIGHTLY. 90 Tablet 1 10/31/2023 Active metoprolol tartrate 37.5 mg Oral Tablet Take 1 Tablet by mouth 2 times daily. 90 Tablet 09/12/2024 Active aspirin 81 mg Oral Tablet, Chewable TAKE 1 TABLET BY MOUTH DAILY. 90 Tablet 2 11/19/2024 Active irbesartan (AVAPRO) 300 mg Oral Tablet Take 300 mg by mouth nightly. Active amLODIPine (NORVASC) 5 mg Oral Tablet Take 1 Tablet by mouth daily. 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 01/29/2021 Corneal ulcer of right eye 01/29/2021 PCO (posterior capsular opacification), right Encounters Date Type Department Care Team Description 06/10/2025 Results Follow-Up [facility] [address] [address] Molly Porter, GREG LIPID SCREEN, HEPATIC FUNCTION PANEL, BASIC METABOLIC PANEL 06/09/2025 10:30 AM EDT - 06/09/2025 11:59 PM EDT Hospital Encounter [facility] [address] [facility] [place] [address] 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 without angina pectoris; Dyslipidemia; Hypertension, unspecified type; S/P CABG x 5; 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 Discharge Disposition: Home or Self Care 06/09/2025 10:00 AM EDT Office Visit [facility] [address] [address] Cristopher De La Garza MD 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 without angina pectoris (Primary Dx); Dyslipidemia; Hypertension, unspecified type; S/P CABG x 5; 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 06/06/2025 Travel from Last 3 Months Immunizations Immunization Administration Dates Next Due Influenza Vaccine Quadrivalent 09/16/2021,2017 Influenza Virus Vaccine Quadrivalant, [place] Surgical History Surgery Date Site/Laterality Comments VASECTOMY COLONOSCOPY WISDOM TOOTH EXTRACTION CORONARY ARTERY BYPASS GRAFT 09/06/2022 N/A coronary artery bypass graft x5 utilizing left internal mammary artery graft x1, endoscopic vein harvest of greater right saphenous vein converted to open harvest of left greater saphenous vein x4 , 3D transesophageal echocardiogram; Surgeon: Aldo Barber MD; Location: [facility] MAIN OR; Service: Open [facility] Medical History Medical History Date Comments High cholesterol Prostate disorder Shortness of breath Sleep apnea Family History Medical History Relation Name Comments Hypertension Brother Heart Surgery Father Hypertension Father Heart Surgery Mother High Cholesterol Mother Hypertension Mother Heart Attack Paternal Grandfather Anesth Problems Neg Hx Relation Name Status Comments Brother Alive Father Maternal Grandfather Maternal Grandmother Mother Alive Paternal Grandfather Paternal Grandmother Social History Tobacco Use Types Packs/Day Years [...] Pulse 59 06/09/2025 9:56 AM EDT Temperature 36.7 C (98 F) 09/13/2022 11:54 AM EST Respiratory Rate 16 09/13/2022 11:54 AM EST Oxygen Saturation 98% 06/09/2025 9:56 AM EDT Inhaled Oxygen Concentration - - Weight 88 kg (194 lb) 06/09/2025 9:56 AM EDT Height 175.3 cm (5' 9 ) 06/09/2025 9:56 AM EDT Body Mass Index 28.65 06/09/2025 9:56 AM EDT Plan of Treatment Upcoming Encounters Date Type Department Care Team (Late st Contact Info) Description 06/10/2026 10:15 AM EDT Office Visit [facility] [address] [place] [address] Cristopher De La Garza MD [address] [place] [address] Health Maintenance Due Date Last Done Comments Wellness Exam Medicare 1958 Hepatitis C Screening 10/21/1975 DTaP/TDaP/Td (1 - Tdap) 1976 Cologuard 2002 Colon Cancer Screening 2002 Colonoscopy 2002 FIT 2002 Sigmoidoscopy 2002 Virtual Colonography 2002 Pneumococcal Vaccine 50+ (1 of 1 - PCV) 10/21/2007 Zoster (1 of 2) 10/21/2007 COVID-19 Vaccine (4 - 2024- season) 2025 05/23/2024, 06/22/2022, 03/16/2022 Influenza Vaccine (#1) 2025 , 06/15/2022, 09/16/2021, Additional history exists Hepatitis B Vaccine Aged Out No longe r eligible based on patient's age to complete this topic Meningococcal B Vaccine Aged Out No l onger eligible based on patient's age to complete this topic Procedures Procedure Name Priority Date/Time Associated Diagnosis Comments BASIC METABOLIC PANEL Routine 06/09/2025 10:55 AM EDT 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 without angina pectoris Dyslipidemia Hypertension, unspecified type 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 HEPATIC FUNCTION PANEL Routine 06/09/2025 10:55 AM EDT 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 without angina pectoris Dyslipidemia Hypertension, unspecified type 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 LIPID SCREEN Routine 06/09/2025 10:55 AM EDT 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 without angina pectoris Dyslipidemia Hypertension, unspecified type 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 POCT EKG Routine 06/09/2025 9:57 AM EDT 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 without angina pectoris from Last 3 Months Results * (ABNORMAL) HEPATIC FUNCTION PANEL (06/09/2025 10:55 AM EDT) Total Protein 6.2(L) 6.4 - 8.3 gm/dL 06/09/2025 11:53 AM EDT [facility] Albumin 4.0 3.2 - 4.6 gm/dL 06/09/2025 11:53 AM EDT [facility] Bili Direct 0.3 0.0 - 0.3 mg/dL 06/09/2025 11:53 AM EDT [facility], [facility] Bili Total 0.7 0.2 - 1.4 mg/dL 06/09/2025 11:53 AM EDT [facility], [facility] AST 24 <=40 U/L 06/09/2025 11:53 AM EDT [facility], [facility] ALT 26 <=41 U/L 06/09/2025 11:53 AM EDT [facility], [facility] Alk Phos 81 40 - 129 U/L 06/09/2025 11:53 AM EDT [facility], [facility] Blood VENOUS BLOOD / Unknown Venipuncture / Unknown 06/09/2025 10:55 AM EDT 06/09/2025 10:55 AM EDT us Cristopher De La Garza MD CHEMISTRY ORDERABLES Final Resul t [facility], [facility] [address] [place] [address] * LIPID SCREEN (06/09/2025 10:55 AM EDT) Cholesterol 127 <200 mg/dL 06/09/2025 11:53 AM EDT [facility], [facility] Comment: < 200 Desirable 200 - 239 Borderline High >= 240 High Triglyceride 59 <150 mg/dL 06/09/2025 11:53 AM EDT [facility], [facility] Comment: < 150 Normal 150 - 199 Borderline High 200 - 499 High >= 500 Very High HDL 56 >=40 mg/dL 06/09/2025 11:53 AM EDT [facility] [email or web address], [facility] Comment: > 60 Optimal 40 - 60 Acceptable < 40 Low LDL Calculated 58 <100 mg/dL 06/09/2025 11:53 AM EDT [facility] [email or web address], [facility] Comment: < 100 Optimal 100 - 129 Near or above optimal 130 - 159 Borderline High 160 - 189 High >= 190 Very High The National Institutes of Health (NIH) equation is used for all lipid panels that report calculated LDL (LDL-C). Non-HDL-C Calculated 71 <=129 mg/dL 06/09/2025 11:53 AM EDT [facility], [facility] Comment: <130 Desirable 130-159 Above Desirable 160-189 Borderline High 190-219 High >= 220 Very High Fasting Specimen? No None 025 11:53 AM EDT [facility], [facility] Blood VENOUS BLOOD / Unknown Venipuncture / Unknown 06/09/2025 10:55 AM EDT 06/09/2025 10:55 AM EDT us Cristopher De La Garza MD CHEMISTRY ORDERABLES Final Resul t [facility], [facility] [address] [place] [address] * BASIC METABOLIC PANEL (06/09/2025 10:55 AM EDT) Sodium 137 136 - 145 mmol/L 06/09/2025 11:53 AM EDT [facility] Potassium 4.8 3.5 - 5.0 mmol/L 06/09/2025 11:53 AM EDT [facility] Chloride 104 98 - 107 mmol/L 06/09/2025 11:53 AM EDT [facility], [facility] Total CO2 24 22 - 29 [...] recommended by the National Kidney Foundation - [place] [employer] of Nephrology Task Force. Blood VENOUS BLOOD / Unknown Venipuncture / Unknown 06/09/2025 10:55 AM EDT 06/09/2025 10:55 AM EDT us Cristopher De La Garza MD CHEMISTRY ORDERABLES Final Resul t Performing Organization Address City/[facility]/ZIP Co de Phone Number [facility] [email or web address], [address], [place] [address] * POCT EKG (06/09/2025 9:57 AM EDT) 06/09/2025 9:57 AM EDT us Cristopher De La Garza MD POINT OF CARE CARDIOLOGY Final R esult Performing Organization Address City/[facility]/ZIP Co de Phone Number [facility] from Last 3 Months Insurance [place] [address] [facility] [place] [facility] B Advance Directives For more information, please contact: [phone] * Full Code (Latest Code Status on File) Date Activated Date Inactivated Comments 09/06/2022 1:50 PM 09/13/2022 6:10 PM Care Teams Electrician Marine Relationship Specialty Start Date End Date Jason Cornejo MD [address] [address] [place] [id number] PCP - General Family Medicine 07/27/22 Cristopher De La Garza MD [address] [place] [address] [place] [address] Cup Trimming Machine Operator Internal Medicine-Interventional Cardiology 06/09/25
--- OUTSIDE RECORDS SUMMARY | 2025-08-08 08:45 | XMS_ITS | Patient Health Record ---
Author Organization [facility] Address [address] [facility] [address] [place], [place] [id number] Care Team Providers Care Assistant Branch Operations Manager Name Role Phone Jason Cornejo Primary Care Provider Allergies No Known Allergies Results Component Value Reference Range Notes P-Comprehensive Metabolic Pa cecille (CMP) Reviewed date:04/17/2025 12:51:50 PM Interpretation:gluc 103, gluc 29 Performing Lab: Notes/Report: Test performed by [facility] , [address], [place] [address] Venkat Jose MD, [facility] CLIA: [id number] Sodium 138 135-145 mmol/L Potassium 5.3 3.5-5.3 [...] Interpretation:Normal Performing Lab: Notes/Report: Test performed by [facility], [address], [place] [address] Venkat Jose MD, [facility] CLIA: [id number] Cholesterol 166 <200 mg/dL Triglycerides 100 <150 [...] Interpretation:Normal Performing Lab: Notes/Report: Test performed by [facility] , [address], [place] [address] Venkat Jose MD, [place] [facility] CLIA: [id number] Magnesium 2.2 1.6-2.4 mg/dL P-Phosphorus Reviewed date:04/17/2025 12:51:51 PM Interpretation:Normal Performing Lab: Notes/Report: [facility] , [address], [place] [address] Venkat Jose MD, [place] [facility] CLIA: [id number] Phosphorus 4.1 2.5-4.5 mg/dL P-PSA Reviewed date:04/17/2025 12:51:51 PM Interpretation:Normal Performing Lab: Notes/Report: Test performed by [facility] [address] , [address], [place] [address] Venkat Jose MD, [place] [facility] CLIA: [id number] PSA 0.44 <4.00 ng/mL Please note this is an ultrasensitive PSA assay with a lower limit of detection of 0.014 ng/mL. This test is performed by the Nolan ECLIA methodology. Values obtained with different assay methods or kits cannot be directly compared. P-TSH reflex to FT4 Reviewed date:04/17/2025 12:51:51 PM Interpretation:Normal Performing Lab: Notes/Report: Test performed by [facility] [address] , [address], [place] [address] Venkat Jose MD, [facility] CLIA: [id number] TSH reflex to FT4 1.50 0.43-5.25 mU/L P-Microalbumin/Creatinine, R andom Urine Sample Reviewed date:04/17/2025 12:51:51 PM Interpretation:Normal Performing Lab: Notes/Report: Test performed by [facility], [address], [place] [id number] Venkat Jose MD, [facility] CLIA: [id number] Albumin/Creatinine Ratio, Urine 3 0-30 ug/mg Microalbumin, Urine, Random 0.4 Creatinine, Urine 142.0 P-Basic Metabolic Panel (BMP ) Reviewed date:09/19/2024 09:07:10 AM Interpretation:gluc 126, bun 31 Performing Lab: Notes/Report: Test performed by [facility], [address] , [address], [place] [address] Venkat Jose MD, [facility] CLIA: [id number] Sodium 139 135-145 mmol/L Potassium 4.5 3.5-5.3 mmol/L Chloride 103 97-108 mmol/L CO2 26 22-32 mmol/L Glucose 126 65-99 mg/dL BUN 31 8-23 mg/dL Creatinine 1.15 0.70-1.30 mg/dL Calcium 8.8 8.6-10.4 mg/dL eGFR by Creatinine 70 >59 mL/min/1.73m2 Medications Medication SIG (Take, Route, Frequency, Duration) Notes Start Date End Date Status amLODIPine Besylate 5 MG 1 tablet Orally Once a day Active Meloxicam 7.5 MG 1 tablet Orally Once a day; Duration: 90 days Active Aspirin 81 MG 1 tab(s) orally once a day Active Omeprazole 20 MG 1 cap(s) orally once a day; Duration: 90 days Active Irbesartan 300 MG 1 tablet Orally Once a day; Duration: 90 days 04/16/2025 Active Finasteride 5 MG 1 tablet Orally once daily; Duration: 90 days Active Metoprolol Tartrate 37.5 MG 1 tab(s) ora lly 2 times a day; Duration: 90 days Active traZODone [...] a day; Duration: 30 days 07/30/2025 Active Immunizations Vaccine Route Administration Date Status Comme nts xFluzone (6mos and older)-trivalent IM Intramuscular 09/07/2012 Administered Tetanus Tdap-Adacel (over 7yrs) IM Intramuscular 03/17/2014 Administered Fluzone Quad (6months&older) IM Intramuscular 09/08/2016 Administered Fluzone Quad (6months&older) IM Intramuscular 09/01/2017 Administered Fluzone Quad (6months&older) IM Intramuscular 09/16/2021 Administered COVID 19 Moderna Unknown 03/16/2022 Administered COVID 19 Mark Unknown 10/27/2020 Administered Problems Problem Type SNOMED Code ICD Code Onset Dates Problem Status W/U Status Risk Notes Problem Essential hypertension (34104063) Essential hypertension (I10) Active confirmed Problem Cervical radiculopathy (27347013) Cervical radiculopathy (M54.12) Active confirmed Problem Sciatica (65287928) Lumbago with sciatica, right side (M54.41) Active confirmed Problem Primary insomnia (8759122) Primary insomnia (F51.01) Active confirmed Problem Degeneration of lumbar intervertebral disc (69252321) Lumbar degenerative disc disease (M51.36) Active confirmed Problem Chronic pain (33805323) Other chronic pain (G89.29) Active confirmed Problem Intervertebral disc disorder of cervical region with myelopathy (92239939) Cervical disc disease with myelopathy (M50.00) Active confirmed Problem COPD - Chronic obstructive pulmonary disease (98577186) Chronic obstructive pulmonary disease, unspecified COPD type (J44.9) Active confirmed Problem Atherosclerotic heart disease of [place] coronary artery without angina pectoris (946405835838731) Coronary artery disease involving [place] coronary artery of [place] heart without angina pectoris (I25.10) Active confirmed Problem Gastroesophageal reflux disease (252074076) Gastroesophageal reflux disease, esophagitis presence not specified (K21.9) Active confirmed Problem Hyperlipidaemia (75295048) Hyperlipidemia, unspecified hyperlipidemia type (E78.5) Active confirmed Problem Benign prostatic hypertrophy without outflow obstruction (519883202) Benign prostatic hyperplasia, presence of lower urinary tract symptoms unspecified, unspecified morphology (N40.0) Active confirmed Problem Cervical disc disorder (490237884) DDD (degenerative disc disease), cervical (M50.30) Active confirmed Problem Cervical spinal stenosis (48059826) Cervical spinal stenosis (M48.02) Active confirmed Problem Displacement of cervical intervertebral disc without myelopathy (10502005) Bulging of cervical intervertebral disc (M50.20) Active confirmed Problem Peyronie's disease (8112315) Peyronie's disease (N48.6) Active confirmed Problem Arthritis of left knee (3744375364247862) Arthritis of left knee (M17.12) Active confirmed Problem Arthropathy of cervical spine facet joint (disorder) (327536594) Facet arthropathy, cervical (M47.812) Active confirmed Problem Cervical myelopathy with cervical radiculopathy (M47.12) Active confirmed Problem Chronic obstructive pulmonary disease (90452244) OAD (obstructive airway disease) (J44.9) Active confirmed Vital Signs Heart Rate 76 /min 07/30/2025 Blood pressure diastolic 90 mm Hg 07/30/2025 Height 69.25 in 07/30/2025 Blood pressure systolic 142 mm Hg 07/30/2025 Weight 195 lbs 07/30/2025 BMI 28.59 kg/m2 07/30/2025 Encounters Encounter Location Date Provider Diagnosis [facility] [address] [facility] [address] [place], [place] [id number] 08/28/2024 Jason [place] Essential hypertensi on I10 and Primary insomnia F51.01 [facility] [address] [facility] [address] [place], [place] [id number] 09/18/2024 Jason [place] Essential hypertensi on I10 [facility] [address] [facility] [address] [place], [place] [phone] 04/16/2025 Jason [place] Essential hypertensi on I10 ; Hyperlipidemia, unspecified hyperlipidemia type E78.5 ; Benign prostatic hyperplasia, presence of lower urinary tract symptoms unspecified, unspecified morphology N40.0 ; Primary insomnia F51.01 ; Coronary artery disease involving [place] coronary artery of [place] heart without angina pectoris I25.10 ; Dizziness R42 ; Prostate cancer screening Z12.5 ; Colon cancer screening Z12.11 and BMI 27.0-27.9,adult Z68.27 [facility] [address] [place], [place] [id number] 07/30/2025 Jason [place] Right hand weakness R29.898 ; Cervical radiculopathy M54.12 ; DDD (degenerative disc disease), cervical M50.30 and Cervical spinal stenosis M48.02 [facility] [address] [place], [place] [id number] 09/12/2024 Jason [place] Essential hypertensi on I10 [facility] [address] [place], [place] [id number] 09/19/2024 Jason [place] [facility] [address] [place], [place] [id number] 11/13/2024 Jason [place] Benign prostatic hyperplasia, presence of lower urinary tract symptoms unspecified, unspecified morphology N40.0 [facility] [address] [place], [place] [id number] 04/17/2025 Jason [place] Assessments Encounter Date Diagnosis (ICD Code) Assessment Notes Treatment Notes Treatment Clinical Notes Section Notes 08/28/2024 Essential hypertension (ICD-10 - I10) 08/28/2024 Primary insomnia (ICD-10 - F51.01) 09/12/2024 Essential hypertension (ICD-10 - I10) 09/18/2024 Essential hypertension (ICD-10 - I10) 11/13/2024 Benign prostatic hyperplasia, presence of lower urinary tract symptoms unspecified, unspecified morphology (ICD-10 - N40.0) 04/16/2025 Essential hypertension (ICD-10 - I10) 04/16/2025 Hyperlipidemia, unspecified hyperlipidemia type (ICD-10 - E78.5) 07/30/2025 Cervical radiculopathy (ICD-10 - M54.12) 07/30/2025 Right hand weakness (ICD-10 - R29.898) 07/30/2025 DDD (degenerative disc disease), cervical (ICD-10 - M50.30) 04/16/2025 Benign prostatic hyperplasia, presence of lower urinary tract symptoms unspecified, unspecified morphology (ICD-10 - N40.0) 04/16/2025 Primary insomnia (ICD-10 - F51.01) 07/30/2025 Cervical spinal stenosis (ICD-10 - M48.02) 04/16/2025 Coronary artery disease involving [place] coronary artery of [place] heart without angina pectoris (ICD-10 - I25.10) 04/16/2025 Dizziness (ICD-10 - R42) 04/16/2025 Prostate cancer screening (ICD-10 - Z12.5) 04/16/2025 Colon cancer screening (ICD-10 - Z12.11) 04/16/2025 BMI 27.0-27.9,adult (ICD-10 - Z68.27) Plan Of Treatment Pending Test Test Name Order Date MRI : Spine, Cervical, without contrast 07/30/2025 colonoscopy 04/16/2025 Next Appt Details Provider Name:Jason Chiang ry, 10/17/2025 09:00:00 AM, [address], [address], [place], [place], [id number], Insurance Providers Payer Name Payer Address Payer Phone Subscriber Number Group Number Insured Name Patient Relationship to Insured Coverage Start Date Coverage End Date MEDICARE PART B [address] [address] [place] [id number] Alex Carver Self - patient is the insured [facility] [address] [place] [address] [id number] Alex Carver Self - patient is the insured Medical (General) History Medical History History ICD Code Coronary Artery Disease, Dx 2022 Hypertension Hyperlipidemia Dyspepsia Colon Polyps BPH Degenerative Disc Disease Kdney Stones Retinal detachment, left eye, 2017 Cardiolyte stress test normal February 2019 sleep apnea Cervical Disc Disease Cervical spine osteoarthritis Surgical History Surgery Date(Month/Year) Colonoscopy (polyps) 08/2008 EGD (normal) 06/2009 Colonoscopy (polyps) 09/2013 LT Cataract Removal 04/2018 Retina and [place] tear repairs (multipl e times) 07/2018 LT Eye Scleral Buckle 10/18/2018 Coronary Artery Bypass Graft x 5 Vessels 08/2022 Hospitalization History Reason Date(Month/Year)
--- OUTSIDE RECORDS SUMMARY | 2025-08-08 08:45 | XMS_ITS | Referral Summary ---
Author Organization [facility] ([place], [place], [place], [place], [place]) Address [address] [place] [address] Care Team Providers Care Loom Inspector Name Role Phone Unavailable Primary Care [...]
--- OUTSIDE RECORDS SUMMARY | 2025-08-08 08:45 | XMS_ITS | Encounter Summary ---
Author Organization [employer] ([place], [place], [place], [place], [place]) Address [address] [place] [address] Care Team Providers Care Business Control Specialist Name Role Phone Unavailable Primary Care Provider Unavailabl e Encounter Details Date Type Department Care Team (Late st Contact Info) Description 10/18/2018 Transcribed Document [facility] [place] [facility] [address] [place] [address] ProviderWilliam MD [address] [place] [address] Social History Tobacco Use Types [...] - William ProviderMD - 10/18/2018 12:00 PM HEART NURSE E Main OR IntraOp Summary Primary Physician: LATESHA HAGEN MD-OPT Finalized Date/Time: 10/23/18 09:42:16 Pt. Name: ALEX CARVER /Sex: 1955 Male Med Rec #: [id number] Physician: LATESHA HAGEN MD-OPT Financial #: [id number] Pt. Type: O Room/Bed: EAS/ Admit/Disch: 10/18/18 09:34:00 - 10/18/18 15:55:00 Institution: [facility] [place] IntraOp Case Attendance Entry 1 Entry 2 Entry 3 Case Attendee LATESHA HAGEN, OZ ALANIZ, Bisi Georges MD-OPT Role Performed Surgeon/Proceduralist, Batch Still Operator, First Scrub, First First Time In 10/18/18 11:39:00 10/18/18 11:39:00 10/18/18 11:39:00 Time Out 10/18/18 13:44:00 10/18/18 13:44:00 10/18/18 13:44:00 Procedure Scleral Buckling Scleral Buckling Scleral Buckling Other Attendee Superficial Wound Closed By: Last Modified By: OZ ALANIZ, OZ ARCOS, OZ ARCOS RN 10/18/18 13:44:16 10/18/18 13:44:16 10/18/18 13:44:16 Entry 4 Entry 5 Entry 6 Case Attendee SHONA HEATH CRNA BORDERS, JONATHAN R, MD BOOKER, P CRAIG, MD-ANS Role Performed LENS MOLDING EQUIPMENT OPERATOR/Nurse Circuit Walker Anesthesiologist Anesthesiologist Time In 10/18/18 11:39:00 10/18/18 12:16:00 10/18/18 13:07:00 Time Out 10/18/18 13:08:00 10/18/18 12:35:00 10/18/18 13:44:00 Procedure Scleral Buckling Scleral Buckling Scleral Buckling Other Attendee Superficial Wound Closed By: Last Modified By: OZ ALANIZ RN LEININGER, SUSAN, OZ ARCOS RN 10/18/18 13:44:16 10/18/18 13:44:16 10/18/18 13:44:16 [facility] IntraOp Case Attendance Audit 10/18/18 13:44:16 Exchange Clerk: IRENE Modifier: IRENE 1 <+> Time Out 1 <*> Procedure Scleral Buckling 2 <+> Time Out 2 <*> Procedure Scleral Buckling 3 <+> Time Out 3 <*> Procedure Scleral Buckling 4 <*> Procedure Scleral Buckling 5 <*> Procedure Scleral Buckling 6 <+> Time Out 6 <*> Procedure Scleral Buckling 10/18/18 13:35:17 Exchange Clerk: IRENE Modifier: [email or web address] 4 <+> Time Out 4 <*> Procedure Scleral Buckling 5 <+> Time Out 5 <*> Procedure Scleral Buckling <+> 6 Case Attendee <+> 6 Role Performed <+> 6 Time In <+> 6 Procedure 10/18/18 12:27:37 Exchange Clerk: TIFFANYNSU Modifier: LEINSU <+> 5 Case Attendee <+> 5 Role Performed <+> 5 Time In <+> 5 Procedure 10/18/18 12:02:52 Exchange Clerk: TIFFANYNSU Modifier: LEINSU <+> 1 Procedure 2 <+> Time In 2 <*> Procedure Scleral Buckling 3 <+> Time In 3 <*> Procedure Scleral Buckling 4 <+> Time In 4 <*> Procedure Scleral Buckling [facility] IntraOp Case Times Entry 1 Patient In Room Time 10/18/18 11:39:00 Out Room Time 10/18/18 13:44:00 Anesthesia Start Time 10/18/18 11:39:00 Stop Time 10/18/18 13:44:00 Anesthesia Ready 10/18/18 11:39:00 Surgery / Procedure Times Start Time 10/18/18 12:00:00 Stop Time 10/18/18 13:35:00 Last Modified By: OZ ALANIZ RN 10/18/18 13:44:07 [facility] IntraOp Case Times Audit 10/18/18 13:44:07 Exchange Clerk: SABINEU Modifier: LEINSU <+> 1 Out Room Time <+> 1 Stop Time 10/18/18 13:36:59 Exchange Clerk: TIFFANYNSU Modifier: LEINSU <+> 1 Stop Time 10/18/18 12:03:09 Exchange Clerk: TIFFANYNSU Modifier: LEINSU <+> 1 Start Time [facility] IntraOp Communication Entry 1 Communication To Family/Significant other Communication By OZ ALANIZ, RN Last Modified By: OZ ALANIZ RN 10/18/18 12:06:59 [facility] IntraOp Counts Verification Entry 1 Procedure Scleral Buckling Count Info Count Type Sharps Counts Verification Baseline/pre-procedure Sequence Count Results Correct, surgeon notified Counts Performed By Count Performed By Bisi Willett (Scrub) Count Performed By OZ ALANIZ RN (RN) Last Modified By: OZ ALANIZ, SHEA 10/18/18 12:02:39 [facility] IntraOp Counts Final Entry 1 Procedure Scleral Buckling Final Count Info Count Type Sharps Counts Verification Skin Closure/end of Sequence procedure Count Results Correct, surgeon notified Counts Performed By Count Performed By Bisi Willett (Scrub) Count Performed By OZ ALANIZ, RN (RN) Last Modified By: OZ ALANIZ RN 10/18/18 13:40:01 [facility] IntraOp Departure from OR Entry 1 Integumentary Assessment Integumentary WDL Assessment WDL Transfer/Handoff Transfer to PACU Phase I Handoff Method Bedside/Face to face Post-op Transport Stretcher/Gurney Via Patient Transport OZ ALANIZ, RN, Accompanied by SHONA HEATH CRNA Last Modified By: OZ ALANIZ RN 10/18/18 12:07:10 [facility] IntraOp Dressing and Packing Entry 1 Type Dressing Location OPERATIVE EYE Wound Dressing Item Eye Pad, Eye Shield Applied By LATESHA HAGEN MD-OPT Other Comments TRANSPORE TAPE Last Modified By: OZ ALANIZ RN 10/18/18 12:04:25 [facility] IntraOp Fire Risk Assessment Entry 1 Fire Info Surgical Site or 1- Yes Incision Above the Xyphoid Open O2 Source 1- Yes (Mask or Cannula) Available Ignition 1- Yes (ESU, Laser, Light Source) Fire Risk 3 Assessment Score Fire Score Fire Risk Yes Assessment Complete Fire Risk OZ ALANIZ, tin pourer Verified By Fire Risk 10/18/18 11:58:00 Assessment Verified Date/Time Fire Risk High Risk Protocol Yes Implemented Standard Fire Yes Safety Precautions Followed Last Modified By: OZ ALANIZ RN 10/18/18 12:02:43 [facility] IntraOp Fire Risk Assessment Audit 10/18/18 12:02:43 Exchange Clerk: IRENE Modifier: TIFFANYNSU <+> 1 Fire Risk Assessment Verified By 10/18/18 12:01:03 Exchange Clerk: IRENE Modifier: SABINEU <+> 1 Standard Fire Safety Precautions Followed [facility] IntraOp General Case Prosthetics Technician 1 Case Information OR OR 08 S[facility] Case Level 1 Room Verified Yes Wound Class I - Clean Specialty SN Ophthalmology Anesthesia Type General ASA Class 2 Diagnosis Preop Diagnosis horshoe tear left retina Postop Same As Preop Yes Postop Diagnosis horshoe tear left retina Last Modified By: OZ ALANIZ RN 10/18/18 12:04:11 [facility] IntraOp Implant Log Entry 1 Entry 2 Entry 3 Type Implant (Synthetic) Implant (Synthetic) Implant (Synthetic) Implant Log Implant Type Other Other Other Tissue Implant Type Implant SLV SHANIQUE 1.00MM TIRE SILICONE [id number] IMP RETIN BND Identification [id number] Description Implant Quantity 1 1 1 Implant Site left eye left eye Implant Identification Model Number Implant Identification Serial Number Implant [id number] Identification Lot Number Implant [employer]hthal[employer] Identification Yard Worker Name: Implant S [id number] Identification Catalog Number Implant Size Implant Has an Expiration Date Implant Expiration 01/17/25 02/17/23 03/19/25 Date Wasted Radioactive Material Time Implanted Tissue Implant Continue for Tissue Implant Documentation Tissue Identification Number Graft Prep Per Yard Worker Instructions: Tissue Preparation Method: Reconstitution Solution: Reconstitution Solution Lot Number Reconstitution Solution Expiration Date: Thawing Solution Thawing Solution Lot Number Thawing Solution Expiration Date Preparation Materials, Other Preparation Materials, Other Lot Number Preparation Materials, Other Expiration Date Tissue Prepared/Processed By Yard Worker Paperwork Completed Implant Type Comment Last Modified By: OZ ALANIZ, RN OZ ALANIZ, RN OZ ALANIZ, RN 10/18/18 12:35:39 10/18/18 12:10:31 10/18/18 12:11:29 [facility] IntraOp Implant Log Audit 10/18/18 12:35:39 Exchange Clerk: IRENE Modifier: IRENE 1 <*> Implant Identification Description [id number] <+> Implant Identification Yard Worker Name: 1 <+> Implant Identification Catalog Number 10/18/18 12:11:29 Exchange Clerk: IRENE Modifier: SABINEU <+> 3 Implant Identification Description <+> 3 Implant Identification Lot Number <+> 3 Implant Identification Yard Worker Name: <+> 3 Implant Expiration Date <+> 3 Implant Site <+> 3 Implant Quantity <+> 3 Implant Identification Catalog Number <+> 3 Implant Type <+> 3 Type 10/18/18 12:10:31 Exchange Clerk: IRENE Modifier: IRENE <+> 2 Implant Identification Description <+> 2 Implant Identification Lot Number <+> 2 Implant Identification Yard Worker Name: <+> 2 Implant Expiration Date <+> 2 Implant Site <+> 2 Implant Quantity <+> 2 Implant Identification Catalog Number <+> 2 Implant Type <+> 2 Type [facility] IntraOp Intraoperative Assessment Entry 1 Handoff Method Other Valid History / Yes Physical in Chart Preoperative Yes Checklist Reviewed/Evaluated Allergies Reviewed Yes Patient is Latex No Sensitive Isolation Not applicable Precautions Noted Level of WDL Consciousness (WDL = Alert, Oriented to Person, Place, and Time) Skin Assessment Yes Verified Present Upon IVs Arrival to OR Last Modified By: OZ ALANIZ RN 10/18/18 12:04:19 [facility] IntraOp Intraoperative Equipment Entry 1 Equipment Equipment Other Intraop Monitoring Electrocardiogram Three lead placement (ECG) Electrode Placement Blood Pressure Non-Invasive BP Device Source Antiembolic Devices Scopes Photo/Video Documentation Photo No Video No Last Modified By: OZ ALANIZ RN 10/18/18 12:03:19 [facility] IntraOp Medication Admin Entry 1 Entry 2 Entry 3 Medication/Irrigant Marcaine 0.5% 30ml vial Vitrase 200units/ml - BSS 15ml - [id number] - [id number] Combo Med List 1 - Combo Med 1 - Combo Med Time Administered Route of LOCAL LOCAL TOPICAL OPERATIVE EYE Administration Dose Dose 4.5 1 Unit of Measure ml ml Volume QS Administered By LATESHA HAGEN, LATESHA HAGEN Brock, Deanna MD-OPT MD-OPT Procedure Irrigation Irrigant Volume In Irrigant Volume Out Last Modified By: OZ ALANIZ RN LEININGER, SUSAN, RN LEININGER, SUSAN, RN 10/18/18 12:06:38 10/18/18 12:06:38 10/18/18 12:06:38 Entry 4 Entry 5 Entry 6 Medication/Irrigant Ancef 1Gm powder - GENTAMYCIN 80MG/2ML SoluMedrol 125mg 2ml - [id number] VIAL - [id number] Combo Med List Time Administered Route of SUBCONJ W/ 5ML BUCKLE SOAK SUBCONJ Administration STERILE H2O Dose Dose 6 Unit of Measure ml Volume QS QS QS Administered By LATESHA HAGEN Brock, Deanna THOMPSON, ANGELIA F, MD-OPT MD-OPT Procedure Irrigation Irrigant Volume In Irrigant Volume Out Last Modified By: OZ ALANIZ RN LEININGER, SUSAN, RN LEININGER, SUSAN, RN 10/18/18 12:06:38 10/18/18 12:06:38 10/18/18 12:06:38 Entry 7 Medication/Irrigant Erythromycin 3.5Gm ophthalmic ointment - [id number] Combo Med List Time Administered Route of TOPICAL OPERATIVE EYE Administration Dose Dose Unit of Measure Volume QS Administered By LATESHA HAGEN MD-OPT Procedure Irrigation Irrigant Volume In Irrigant Volume Out Last Modified By: OZ ALANIZ RN 10/18/18 12:06:38 [facility] IntraOp Patient Positioning Entry 1 Procedure Scleral Buckling Body Position Supine Left Arm Position Resting at side Right Arm Position Resting at side Left Leg Position Uncrossed, parallel Right Leg Position Uncrossed, parallel Position Comments PT REMAINED ON EYE STRETCHER IN BILATERAL WRIST RESTRAINTS WITH PILLOW UNDER KNEES Feet Uncrossed Yes Pressure Points Yes Checked Positioning Devices Pillows, Soft Cuff Straps Device Position HEAD ON PADDED HEADREST. ARMS ADDUCTED TO SIDES. PILLOW UNDER KNEES. Positioned By OZ ALANIZ, SHEA, SHONA HEATH CRNA Position Verified Positioning Yes Verified by Anesthesia Positioning Yes Verified by Surgeon Last Modified By: OZ ALANIZ RN 10/18/18 12:02:49 [facility] IntraOp Sign In Entry 1 Patient, Site, Yes Procedure Identified Surgical Consent Yes Confirmed Relevant Surgical Yes Documents Available Surgical Site Yes Marked by person performing procedure Anesthesia Machine Yes Check Completed Medication Checks Yes Completed Airway Difficult No Airway/Aspiration Risk Difficult Yes Airway/Aspiration Intervention Equipment Available Blood Loss Risk No Blood Loss Yes Intervention Equipment Prepared and Ready Blood Identifiers Not applicable Verified Per Policy Hypothermia Risk No Warming Measures Yes Taken Last Modified By: OZ ALANIZ RN 10/18/18 12:03:00 [facility] Intra Op Sign Out Entry 1 RN Confirmation Surgical Yes Procedure(s) Identified Instrument, Sponge Yes and Sharps Counts Correct/Documented Equipment Problems N/A Documented Specimen Labeled N/A Correctly Urinary Catheter N/A Documented in IView Rosario Patient Yes Recovery Concerns Reviewed with Anesthesia Provider, Surgeon and RN Rosario Patient Yes Management Concerns Reviewed with Anesthesia Provider, Surgeon and RN Safety Checklist Yes Elements Complete? RN Sign Out OZ ALANIZ, SHEA Signature RN Sign Out 10/18/18 13:44:00 Signature Date/Time Plan of Care Outcome - Fire Risk OUTCOME STATEMENT: Goal met Patient is free from injury related to surgical fire Plan of Care Outcome - Pt Positioning OUTCOME STATEMENT: Goal met Absence of signs and symptoms of positioning injury. Plan of Care Outcome - Skin Prep OUTCOME STATEMENT: Goal met Intraoperative care is consistent with measures to prevent infection Plan of Care Outcome - Xray/Images OUTCOME STATEMENT: N/A Absence of observable signs or symptoms of radiation injury Plan of Care Outcome - Counts OUTCOME STATEMENT: Goal met Absence of signs and symptoms of injury related to extraneous objects Last Modified By: OZ ALANIZ RN 10/18/18 13:44:27 [facility] Intra Op Sign Out Audit 10/18/18 13:44:27 Exchange Clerk: IRENE Modifier: IRENE <+> 1 RN Sign Out Signature Date/Time [facility] IntraOp Skin Prep Entry 1 Procedure Scleral Buckling Prescribed Yes Pre-Surgical Prep Completed Prep Area OPERATIVE EYE Intraop Prep Integumentary WDL Assessment WDL Prep Agents Betadine solution Prep by OZ ALANIZ RN Skin Prep Comment 5% BETADINE Hair Removal Methods No hair removal performed Last Modified By: OZ ALANIZ RN 10/18/18 12:03:16 [facility] IntraOp Surgical Procedures Entry 1 Procedure Scleral Buckling Additional SCLERAL BUCKLE LEFT EYE Procedure Description Primary Procedure Yes Primary Surgeon LATESHA HAGEN MD-OPT Start 10/18/18 12:00:00 Stop 10/18/18 13:35:00 Anesthesia Type General Specialty SN Ophthalmology Wound Class I - Clean Last Modified By: OZ ALANIZ RN 10/18/18 13:37:02 [facility] IntraOp Surgical Procedures Audit 10/18/18 13:37:02 Exchange Clerk: IRENE Modifier: IRENE <+> 1 Stop 10/18/18 12:04:30 Exchange Clerk: IRENE Modifier: IRENE <+> 1 Start [facility] IntraOp Time Out Entry 1 Procedure to be Scleral Buckling Performed Time Out Time Out Pause Time 10/18/18 11:58:00 All activity Yes suspended (unless life threatening emergency) Team Verbally Correct patient Confirms Information identity, Correct side and site are marked, Consent form is present and accurate, Agreement on the procedure to be done, Correct patient position, Relevant images/results properly labeled/appropriately displayed, Confirm antibiotics have been administered, Confirm the skin prep has dried, Confirm prosthesis/implant/devic e is present, Performed in location of procedure after prepped/draped, Performed before each procedure if multiple procedures Antibiotic N/A Prophylaxis Administered Or In Progress Within the Last 60 Minutes Beta Errol N/A Administered Venous Yes Thromboembolism Prophylaxis Required Anticipated Critical Events Surgeon None expected Anesthesia Provider None expected Nursing Assures Sterility of instruments, Implant Availability Essential Imaging Yes Labeled and Displayed Last Modified By: OZ ALANIZ RN 10/18/18 12:00:54 Case Comments <None> Finalized By: Juliana Floyd RN Document Signatures Signed By: OZ ALANIZ RN 10/18/18 13:44 Juliana Floyd RN 10/23/18 09:42 Unfinalized History Date/Time Username Reason for Unfinalizing Freetext Reason for Unfinalizing 10/23/18 09:42 RAJ Chart Audit Electronically signed by Rachel [facility] Conversion Rv Repair Technician Cerner at 12/09/2022 6:00 PM CDT documented in this encounter Plan of Treatment Not on file documented as of this encounter Visit Diagnoses Not on filedocumented in this encounter
--- OUTSIDE RECORDS SUMMARY | 2025-08-08 08:45 | XMS_ITS | Encounter Summary ---
Author Organization [place] [address] Care Team Providers Care Direct Marketing Executive Name Role Phone Jason Cornejo MD Primary Care Provider + [phone] Cristopher De La Garza MD Unavailable Encounter Details Date Type Department Care Team (Late st Contact Info) Description 06/10/2025 Results Follow-Up [facility] [address] [place] [address] Molly Porter, BEN DAY ARTIST [address] [place] [address] LIPID SCREEN, HEPATIC FUNCTION PANEL, BASIC METABOLIC PANEL Social History Tobacco Use Types Packs/Day Years [...] on file documented as of this encounter Plan of Treatment Upcoming Encounters Date Type Department Care Team (Late st Contact Info) Description 06/10/2026 10:15 AM EDT Office Visit [facility] [address] [place] [address] Cristopher De La Garza MD [address] [place] [address] documented as of this encounter Visit Diagnoses Not on filedocumented in this encounter Care Teams Direct Marketing Executive Relationship Specialty Start Date End Date Jason Cornejo MD [address] [address] [place] [address] PCP - General Family Medicine 07/27/22 Cristopher De La Garza MD [address] [place] [address] [place] [address] Family Centered Specialist Internal Medicine-Interventional Cardiology 06/09/25 documented as of this encounter
--- NOTE | 2025-08-08 09:16 | XR_ITS ---
PROCEDURE INFORMATION: Exam: XR Orbits, MR Screening Exam date and time: 08/08/2025 9:18 AM Age: 69 years old Clinical indication: Screening exam; R/O metal in eyes prior to mri TECHNIQUE: Imaging protocol: XR of the orbits. Exam was performed for MR screening. Views: 1 or 2 views COMPARISON: MR CERVICAL SPINE WO CON 10/02/2019 8:08 AM FINDINGS: Paranasal sinuses: Well aerated. Bones/joints: Unremarkable. Soft tissues: Unremarkable. Radiopaque device or foreign body: None. No evidence of metallic foreign body projected over either orbit. IMPRESSION: No visible contraindication to MRI on this exam.
== END 2025-08-08 23:59 | disposition home or self-care (01) ==
LOC: RAD 08:39
PROVIDERS: PCP Family Medicine; Visit Provider Family Medicine
DX: M50.13 Cervical disc disorder with radiculopathy, cervicothoracic region (principal); M50.121 Cervical disc disorder at C4-C5 level with radiculopathy; M50.122 Cervical disc disorder at C5-C6 level with radiculopathy; M50.123 Cervical disc disorder at C6-C7 level with radiculopathy; M48.02 Spinal stenosis, cervical region; R29.898 Other symptoms and signs involving the musculoskeletal system; Z04.89 Encounter for examination and observation for other specified reasons
CPT/HCPCS: 70200; 72141